=== PATIENT | female | born 1955 | race Caucasian/White ===

== ENCOUNTER 2023-08-23 17:00 | Emergency (ER) | payer MEDICARE, SELFPAY ==
--- NOTE | 2023-08-23 17:01 | ED.EYEPROB ---
HPI - Eye Problem General Chief complaint: Ear Stated complaint: Right Ear Irritation Time Seen by Provider: 08/23/23 17:01 Source: patient Mode of arrival: ambulatory Limitations: no limitations History of Present Illness HPI Narrative: Charlene is a 68-year-old female patient presenting to the clinic today with complaints of right ear irritation x2 days. She reports that she is having pain to the ear with drainage. No fever or chills. Related Data Home Medications Medication Instructions Recorded Confirmed alprazolam 1 mg tablet 1 mg DIRECTED 08/23/23 08/23/23 calcitriol 0.25 mcg capsule 0.25 mcg DIRECTED 08/23/23 08/23/23 duloxetine 60 mg capsule,delayed 60 mg PO DIRECTED 08/23/23 08/23/23 release ergocalciferol (vitamin D2) 1,250 1 unit DIRECTED 08/23/23 08/23/23 mcg (50,000 unit) capsule famotidine 20 mg tablet 20 mg DIRECTED 08/23/23 08/23/23 levothyroxine 88 mcg tablet 88 mcg DIRECTED 08/23/23 08/23/23 montelukast 10 mg tablet 10 mg DIRECTED 08/23/23 08/23/23 pregabalin 150 mg capsule 150 mg DIRECTED 08/23/23 08/23/23 topiramate 25 mg tablet 25 mg DIRECTED 08/23/23 08/23/23 trazodone 100 mg tablet 100 mg PO DIRECTED 08/23/23 08/23/23 Allergies Allergy/AdvReac Type Severity Reaction Status Date / Time Penicillins Allergy Intermediate RASH Verified 03/14/14 12:11 erythromycin base Allergy Unknown Verified 03/14/14 12:11 Sulfa (Sulfonamide Allergy Unknown FATIGUE Verified 03/14/14 12:11 Antibiotics) Review of Systems Review of Systems: Pertinent positives per HPI. Patient denies any fever, chills, rash, headache, visual changes, dizziness, cough, runny nose, sore throat, shortness of breath, chest pain, palpitations, nausea, vomiting, diarrhea, constipation, abdominal pain, or any urinary issues. PMFSH Comments At the time of my signature, I reviewed and agree with the nursing past medical, surgical, social, and family history. There is no relevant family history pertinent to the patient complaint. Exam Narrative: General: Well-developed, obese, in no apparent distress Head: Normocephalic, atraumatic Eyes: Pupils equally round and reactive to light bilaterally, EOM intact, sclera and conjunctive clear, no discharge, lids normal Ears: TMs intact and clear, left ear canals clear, right ear canal swollen with white otorrhea, tenderness to palpation of the tragus and pulling of the pinna, grossly hearing normal. Nose: Nares patent, no discharge, no inflammation, no sinus tenderness. Mouth: Oropharynx without lesions or masses, good dentition, MMM. Neck: Supple, trachea midline, no enlargement of anterior or posterior cervical nodes, no thyroid masses or goiter palpable. Cardio: Regular rate and rhythm, s1 and s2 normal, no murmur appreciated. Resp: Clear to auscultation bilaterally anteriorly and posteriorly, no rhonchi, rales, wheezing or rubs Course Course Emergency Course: Portions of this record may have been created with voice recognition software. Level of Care: Express Care Visit Vital Signs Vital signs: Vital signs reviewed MDM - Eye Problem MDM Narrative Medical decision making narrative: At the time of the patient is resting comfortably on the exam table. I suspect patient has right-sided otitis externa. Prescription for ofloxacin ear drops was prescribed. Supportive measures were discussed with the patient she voiced understanding of the discharge instructions and agrees to treatment plan. Differential Diagnosis Differential diagnosis: Likely other (Otitis media, otitis externa, eustachian tube dysfunction, cerumen impaction, URI) Discharge Plan Discharge Clinical Impression: Otitis externa Qualifiers: Otitis externa type: diffuse Chronicity: acute Laterality: right Qualified Code(s): H60.311 - Diffuse otitis externa, right ear Patient Disposition: Home, Self-Care Condition: Stable Instructions: Antibiotic Form, Swimmer's Ear
[2023-08-23 17:11] VITALS: BP 129/69; PULSE 81; RESP 16; TEMP 36.7; O2SAT 98
== END 2023-08-23 17:24 | disposition home or self-care (01) ==
PROVIDERS: Emergency Provider Nurse Practitioner Family; PCP Student in an Organized Health Care Education/Training Program
DX: H60.311 Diffuse otitis externa, right ear (principal); Z79.899 Other long term (current) drug therapy; Z79.891 Long term (current) use of opiate analgesic
CPT/HCPCS: 99213; G0463

== ENCOUNTER 2024-06-17 16:47 | Emergency (ER) | payer MEDICARE, SELFPAY ==
--- NOTE | ~2024-06-17 | XR_ITS ---
EXAM: XR foot RT min 3V DATE: 06/17/2024 17:24 HISTORY: pain rt foot , 2nd/3rd/4th toes fell getting out of shower . COMPARISON: 01/26/2014. FINDINGS: Normal mineralization. Tiny ossific fragments lateral to the third PIP joint joint. No lyt ic or blastic lesion. Mild scattered degenerative changes. Moderate Achilles and plantar enthesopathy . No erosion or periosteal change. Soft tissues within normal limits. IMPRESSION: Small avulsion fracture fragments (such as capsular avulsion) versus degenerative changes lateral to the third PIP joint. Correlate for point tenderness. Reviewed, dictated and finalized at location K. IMPRESSION: Small avulsion fracture fragments (such as capsular avulsion) versu s degenerative changes lateral to the third PIP joint. Correlate for point tend erness.
--- NOTE | ~2024-06-17 | XR_ITS ---
EXAM: XR wrist LT min 3V DATE: 06/17/2024 17:41 HISTORY: pain left lateral wrist into fell getting out of shower . COMPARISON: None available. FINDINGS: Decreased mineralization. Comminuted, intra-articular fracture of the distal left radius w ith mild impaction and 2 mm medial displacement. No lytic or blastic lesion. Joint spaces are maintai pricila. No erosion or periosteal change. Soft tissues within normal limits. IMPRESSION: Minimally impacted and minimally displaced comminuted, intra-articular fracture of the di stal left radius. No ulnar styloid fracture identified. Reviewed, dictated and finalized at location K. IMPRESSION: Minimally impacted and minimally displaced comminuted, intra-articu lar fracture of the distal left radius. No ulnar styloid fracture identified.
--- NOTE | ~2024-06-17 | XR_ITS ---
EXAM: XR forearm LT 2V DATE: 06/17/2024 17:23 HISTORY: pain lateral left forearm fell getting out of shower . COMPARISON: None available. FINDINGS: Mildly decreased mineralization. Nondisplaced comminuted intra-articular fracture of the d istal left radius. Possible ulnar styloid fracture. No lytic or blastic lesion. Mild scattered degene rative changes. No erosion or periosteal change. Soft tissues within normal limits. IMPRESSION: Nondisplaced comminuted intra-articular fracture of the distal left radius. Possible ulna r styloid fracture. Reviewed, dictated and finalized at location K. IMPRESSION: Nondisplaced comminuted intra-articular fracture of the distal left radius. Possible ulnar styloid fracture.
[2024-06-17 16:55] VITALS: BP 150/79; PULSE 74; RESP 16; TEMP 36.4; O2SAT 100
[2024-06-17 17:31] VITALS: BP 103/58; PULSE 90; RESP 18; TEMP 36.8; O2SAT 97
--- NOTE | 2024-06-17 17:32 | ED.UPPEXIN ---
HPI - Extremity Injury (Upper) General Chief Complaint: Extremity Injury, Upper Stated Complaint: Left Wrist/Arm Pain Time Seen by Provider: 06/17/24 17:32 History of Present Illness HPI narrative: Patient presents with complaints of left wrist pain and right foot pain. She reports that she slipped in the shower and fell just prior to arrival. She denies any head injuries. She reports that left wrist is the worst of her pain. She does retain full range of motion to the fingers, decreased mange range of motion to the wrist. She rates pain 6/10, has not had anything for pain prior to arrival. Related Data Home Medications Medication Instructions Recorded Confirmed alprazolam 1 mg tablet 1 mg DIRECTED 08/23/23 06/17/24 calcitriol 0.25 mcg capsule 0.25 mcg DIRECTED 08/23/23 06/17/24 duloxetine 60 mg capsule,delayed 60 mg PO DIRECTED 08/23/23 06/17/24 release ergocalciferol (vitamin D2) 1,250 1 unit DIRECTED 08/23/23 06/17/24 mcg (50,000 unit) capsule famotidine 20 mg tablet 20 mg DIRECTED 08/23/23 06/17/24 levothyroxine 88 mcg tablet 88 mcg DIRECTED 08/23/23 06/17/24 montelukast 10 mg tablet 10 mg DIRECTED 08/23/23 06/17/24 pregabalin 150 mg capsule 150 mg PO DIRECTED 08/23/23 06/17/24 topiramate 25 mg tablet 25 mg PO DIRECTED 08/23/23 06/17/24 trazodone 100 mg tablet 100 mg PO DIRECTED 08/23/23 06/17/24 Allergies Allergy/AdvReac Type Severity Reaction Status Date / Time Penicillins Allergy Intermediate RASH Verified 06/17/24 16:52 erythromycin base Allergy Unknown Rash Verified 06/17/24 16:52 Sulfa (Sulfonamide Allergy Unknown FATIGUE Verified 06/17/24 16:52 Antibiotics) Review of Systems Review of Systems: All systems reviewed & are unremarkable except as noted in HPI and below Constitutional: Constitutional: Reports no additional constitutional complaints ENT: Reports system reviewed and no additional complaints, except as documented Cardiovascular: Cardiovascular: Reports no additional cardiovascular complaints Respiratory: Respiratory: Reports no additional respiratory complaints Gastrointestinal: Gastrointestinal: Reports no additional gastrointestinal complaints Musculoskeletal: Musculoskeletal: Reports as per HPI, Reports deformity (left wrist), Reports arthralgias (left wrist), Reports limited range of motion (left wrist) and Reports other (right foot pain) Neurologic: Reports as per HPI Exam Const: General: cooperative, no acute distress, alert and awake Orientation/consciousness: oriented to person, oriented to place and oriented to time HENMT: Head: normal to inspection Resp: Effort & Inspection: normal respiratory effort and able to speak in complete sentences Auscultation: clear to auscultation bilaterally, no crackles, no rales, no rhonchi and no wheezes Cardio: Palpation: normal PMI Rate: regular rate Rhythm: regular rhythm Heart sounds: S1 normal heart sound present and S2 normal heart sound present Neuro: General: oriented to person, oriented to place and oriented to time Cranial nerves: Yes CN's II-XII intact bilaterally Extrem: Left upper extremity: normal capillary refill and wrist abnormal to inspection obvious deformity, tenderness of the distal radius and abnormal ROM pain with active ROM (flexion and extension) Right lower extremity: foot (Right 3rd toe with bruising, slight tenderness) Psych: Appearance: grossly normal Thought process: Normal thought process present Insight: Good insight present (Psych) Judgement: Good judgement present (Psych) Course Course Level of Care: Express Care Visit Vital Signs Vital signs: Vital Signs Temperature 97.6 F 06/17/24 16:55 Pulse Rate 74 06/17/24 16:55 Respiratory Rate 16 06/17/24 16:55 Blood Pressure 150/79 H 06/17/24 16:55 Pulse Oximetry 100 06/17/24 16:55 Oxygen Delivery Room Air 06/17/24 16:55 Temperature 98.3 F 06/17/24 17:31 Pulse Rate 90 06/17/24 17:31 Resp
[2024-06-17] MEDS: KETOROLAC (*BKC) 60 MG/2 ML VIAL IM (17:42)
== END 2024-06-17 19:16 | disposition home or self-care (01) ==
PROVIDERS: Emergency Provider Nurse Practitioner Family; PCP Student in an Organized Health Care Education/Training Program
DX: S92.501A Displaced unspecified fracture of right lesser toe(s), initial encounter for closed fracture (principal); S52.572A Other intraarticular fracture of lower end of left radius, initial encounter for closed fracture; W18.2XXA Fall in (into) shower or empty bathtub, initial encounter
CPT/HCPCS: 29125; 73090; 73110; 73630; 96372; 99214; A4565; G0463; J1885

== ENCOUNTER 2024-09-06 08:48 | Emergency (ER) | payer MEDICARE, SELFPAY ==
--- NOTE | 2024-09-06 08:56 | ED.EAR ---
HPI - Ear Problem General Chief complaint: Ear Stated complaint: Let Ear Irritation Time Seen by Provider: 09/06/24 09:01 Source: patient and RN notes reviewed Mode of arrival: ambulatory Limitations: no limitations History of Present Illness HPI Narrative: 69-year-old female presents concern for left ear pain. She reports she has had nasal congestion and discharge for about 2 weeks. Reports overnight she began having ear pain in the middle of the night with drainage. She denies fever. She takes antihistamines daily MD Complaint: ear pain Related Data Home Medications Medication Instructions Recorded Confirmed alprazolam 1 mg tablet 1 mg DIRECTED 08/23/23 09/06/24 calcitriol 0.25 mcg capsule 0.25 mcg DIRECTED 08/23/23 09/06/24 duloxetine 60 mg capsule,delayed 60 mg PO DIRECTED 08/23/23 09/06/24 release ergocalciferol (vitamin D2) 1,250 1 unit DIRECTED 08/23/23 09/06/24 mcg (50,000 unit) capsule famotidine 20 mg tablet 20 mg DIRECTED 08/23/23 09/06/24 levothyroxine 88 mcg tablet 88 mcg DIRECTED 08/23/23 09/06/24 montelukast 10 mg tablet 10 mg DIRECTED 08/23/23 09/06/24 pregabalin 150 mg capsule 150 mg PO DIRECTED 08/23/23 09/06/24 topiramate 25 mg tablet 25 mg PO DIRECTED 08/23/23 09/06/24 trazodone 100 mg tablet 100 mg PO DIRECTED 08/23/23 09/06/24 Allergies Allergy/AdvReac Type Severity Reaction Status Date / Time Penicillins Allergy Intermediate RASH Verified 09/06/24 08:51 erythromycin base Allergy Unknown Rash Verified 09/06/24 08:51 Sulfa (Sulfonamide Allergy Unknown FATIGUE Verified 09/06/24 08:51 Antibiotics) Review of Systems Review of Systems: CONSTITUTIONAL: Denies malaise, chills, sweats, or fever. EYES: Denies visual changes, redness, or discharge. ENT: Reports rhinorrhea, congestion. Denies sinus pain, and sore throat. Reports left ear pain CARDIOVASCULAR: Denies chest pain, palpitations, or edema. RESPIRATORY: Denies cough. Denies dyspnea. GASTROINTESTINAL: Denies abdominal pain, nausea, vomiting, diarrhea SKIN: Denies rash or itching. MUSCULOSKELETAL: Denies myalgia. NEUROLOGIC: Denies headache. All systems reviewed & are unremarkable except as noted in HPI and below PMFSH Comments At time of signature, agree with nursing past medical, surgical, social and family history. There is no relevant family history pertinent to the presenting complaint Exam Narrative: GENERAL: Well-appearing, well-nourished, and in no acute distress. HEAD: Normocephalic EYES: PERRLA, conjunctivae clear ENT: Nares clear, turbinates edematous, clear discharge. Mucous membranes moist. TM pearly naranjo with dull light reflex bilaterally; no tragal tenderness. Oropharynx not erythematous without lesions. Tonsils not enlarged and without exudate, no drooling, no hoarseness, no trismus, uvula midline. NECK: Supple. No lymphadenopathy CHEST: Clear to auscultation, breath sounds equal. No wheezing, rhonchi, rales, or stridor. No respiratory distress, speaks in full sentences. HEART: Regular rate and rhythm. No murmur heard. SKIN: Warm, dry, no rash. NEURO: Alert and oriented x3. PSYCH: Normal mood and affect Course Course Emergency Course: Patient is aware of diagnosis, understands and agrees to treatment plan. Anticipatory guidance given. Patient agrees to follow-up as directed and is aware of reasons to seek care at the emergency department. Portions of this record may have been created with voice recognition software Level of Care: Express Care Visit Vital Signs Vital signs: Reviewed. Medical Decision Making MDM Narrative Medical decision making narrative: I evaluated this in the express care. History is obtained from patient who is an independent historian and physical exam was performed.? Available medical records were reviewed. ? Exam findings and relevant testing show no acute concerns or changes; patient is non-toxic appearing and is in no distress. Differenti
[2024-09-06 08:57] VITALS: BP 132/72; PULSE 93; RESP 20; TEMP 36.1; O2SAT 100
== END 2024-09-06 09:25 | disposition home or self-care (01) ==
PROVIDERS: Emergency Provider Nurse Practitioner; PCP Student in an Organized Health Care Education/Training Program
DX: H66.92 Otitis media, unspecified, left ear (principal); Z79.899 Other long term (current) drug therapy
CPT/HCPCS: 99213; G0463

== ENCOUNTER 2024-11-07 07:59 | Outpatient (CLI) | payer MEDICARE, SELFPAY ==
--- NOTE | 2024-12-04 08:25 | P.SLEEP_ITS ---
Sleep Study Date of Study: 11/07/24 Ordering Provider: Mohan Walters, DO Interpreting Physician: Jojo Rascon DO Sleep Study Type: Polysomnogram Height: 1.6 m Weight: 99.79 kg Body Mass Index: 38.9 Neck Circumference (inches): 16 [place]: 9 Reason for Sleep Study daytime hypersomnia Sleep History The patient is a 69-year-old female had a sleep study ordered under primary care for evaluation of sleep apnea. The patient denies awakening from sleep short of breath. She denies awakening at night with heartburn, belching or cough. She frequently snores and is occasionally loud enough that others complain. She rarely has trouble sleeping when she has a cold. She denies waking up gasping for air throughout the night. She denies having breathing problems at night observed by herself or others. She denies sweating excessively at night. She denies having heart palpitations or irregular heartbeats during the night. She frequently falls asleep during the day but never while driving. She denies sleep paralysis, cataplexy and hypnagogic / hypnopompic hallucinations. She denies having trouble at school or work due to sleepiness. She denies feeling afraid of going to sleep. She denies having nightmares. She denies remembering her dreams. She denies having thoughts racing through mind. She occasionally feels sad or depressed. She rarely has anxiety. She denies having muscular ten alfreda and she denies noticing parts of her body jerk. She denies kicking during. She denies having crawling and aching feelings in her legs but occasionally awakens with leg pain during the night. She denies grinding her teeth during sleep denies awakening with morning pain. She is occasionally bothered pain during the day but never awakened by pain during the night. She denies waking up feeling stiff in the morning. She denies waking up with sore or achy muscles. She denies waking up with pain in the neck, spine other joints. She goes to bed at 10:00 p.m. on both weekdays and weekends. It takes her 10 minutes to fall asleep. She wakes up twice throughout the night to urinate and is able to fall back asleep within 10-15 minutes. She wakes up at 7:00 a.m. on weekdays and between 8-9 a.m. on the weekends. She gets 8.5 hours of sleep per night. She denies staying in bed after waking up in the morning. She currently lives with her and adult child. She will consume caffeinated beverages within 2 hours of bedtime. She denies engaging in physical exercise before bedtime. She will watch television before falling asleep. She will take naps in afternoon or the evening but they are not refreshing. She consumes 6-7 caffeinated beverages per day. She denies tobacco, alcohol and recreational drug use. Medications Home Medications ?Medication ?Instructions ?Recorded ?Confirmed ?Type alprazolam 1 mg tablet 1 mg DIRECTED 08/23/23 09/06/24 History calcitriol 0.25 mcg capsule 0.25 mcg DIRECTED 08/23/23 09/06/24 History duloxetine 60 mg capsule,delayed 60 mg PO DIRECTED 08/23/23 11/13/24 History release ergocalciferol (vitamin D2) 1,250 1 unit DIRECTED 08/23/23 09/06/24 History mcg (50,000 unit) capsule famotidine 20 mg tablet 20 mg DIRECTED 08/23/23 09/06/24 History levothyroxine 88 mcg tablet 88 mcg DIRECTED 08/23/23 09/06/24 History montelukast 10 mg tablet 10 mg DIRECTED 08/23/23 09/06/24 History pregabalin 150 mg capsule 150 mg PO DIRECTED 08/23/23 11/13/24 History topiramate 25 mg tablet 25 mg PO DIRECTED 08/23/23 11/13/24 History trazodone 100 mg tablet 100 mg PO DIRECTED 08/23/23 11/13/24 History hydrocodone 5 mg-acetaminophen 325 1 tablet PO Q6H PRN pain #14 tabs 06/17/24 09/06/24 Rx mg tablet cefdinir 300 mg capsule 300 mg PO Q12H 10 days #20 caps 09/06/24 11/13/24 Rx baclofen 10 mg tablet See Rx Instructions .Route 11/13/24 Rx .COMPLEX PRN muscle pain #7 tabs Sleep Procedure A full night polysomnogram using the [employer] multi-channel system recorded the standard physiologic parameters including EEG, EOG, submentalis EMG, anterior tibialis EMG, EKG, body position, nasal and oral airflow using nasal pressure sensor and thermistor.? Respiratory parameters of chest and abdominal movements were recorded with Respiratory Inductance Plethysmography belts. Oxygen saturation was recorded by pulse oximetry. Video monitoring was also performed. Sleep stages, periodic limb movements, and EEG arousals were scored in 30 second epochs according to the criteria of the AASM Scoring Manual. The Apnea-Hypopnea Index was calculated using [facility] guidelines for definition of hypopnea with 4% O2 desaturations while scoring respiratory events. Sleep Architecture The total recording time was 469.7 minutes.? The total sleep time was 375.5 minutes. Sleep latency was 33.0 minutes. REM sleep was not achieved during this study. Sleep efficiency was 79.9%. The patient had 53 awakenings for an awakening index of 8.5. Wake after sleep onset time was 61.0 minutes. The patient spent 77.0 minutes, 20.5% of total sleep time in Stage N1. The patient spent 260.5 minutes, 69.4% in Stage N2. The patient spent 38.0 minutes, 10.1% in Stage N3. The patient spent 0.0 minutes, 0.0% in Stage REM sleep. Respiratory Analysis The patient had 3 obstructive apneas for an overall Apnea Hypopnea Index of 0.5. The REM Apnea Hypopnea Index was -. The NREM Apnea Hypopnea Index was 0.5. The patient had a Central Apnea Hypopnea Index of 0. There was no evidence of Gunnar-Awad Respirations. Arousals There were 124 total arousals for an arousal index of 19.8. There were 100 spontaneous arousals for an index of 16.0. There were 5 arousals due to respiratory events for an index of 0.8. There were 0 arousals due to periodic limb movements for an index of 0.? There were 14 arousals due to isolated limb movements for an index of 2.2. Periodic Limb Movements The patient had 29 isolated limb movements with an index of 4.6. The patient had 6 periodic limb movements with an index of 1.0. Patient had a total of 35 limb movements with a total limb movement index of 5.6. Oximetry Data The patient had an average oxygen saturation of 94.2% in sleep with a minimum oxygen saturation of 90.0% and a maximum oxygen saturation of 98.0%. The patient had 3 oxygen desaturations that were 4% or greater resulting in an Oxygen Desaturation Index of 0.5.? The patient spent 0 minutes of total sleep time with an oxygen saturation below 88%. Snoring Profile Mild snoring was present throughout the study. Cardiac Profile The EKG showed normal sinus rhythm with occasional PVCs. The patient had an average pulse rate of 62.2 bpm with a minimum pulse of rate of 52.0 bpm and a maximum pulse rate of 98.0 bpm.? EEG Profile No signs of seizure activity seen. Alpha intrusion was present throughout the majority of the study. Assessment and Plan Assessment and Plan (1) Daytime hypersomnia: Code(s): G47.10 - Hypersomnia, unspecified Status: Acute Assessment and Plan: The patient had an overall AHI of 0.5 with desaturation down to 90%. This is not consistent with sleep-disordered breathing. The patient had alpha intrusion present throughout the majority of the study. Alpha intrusion can be seen in patients with uncontrolled mood disorders or chronic pain. It clinically presents as unrefreshing sleep despite sleeping an adequate number of hours in the absence of sleep-disordered breathing. Treatment of alpha intrusion is directed towards addressing the underlying cause. Data The data obtained during this sleep study is adequate for interpretation. Certification This sleep study has been reviewed by a board certified sleep medicine physician.
[2024-12-08 15:16] VITALS: BMI 38.9
== END 2024-11-08 05:43 | disposition home or self-care (01) ==
PROVIDERS: PCP Student in an Organized Health Care Education/Training Program; Visit Provider Student in an Organized Health Care Education/Training Program
DX: G47.10 Hypersomnia, unspecified (principal); G47.9 Sleep disorder, unspecified
CPT/HCPCS: 95810

== ENCOUNTER 2024-11-13 09:29 | Emergency (ER) | payer MEDICARE, SELFPAY ==
[2024-11-13 10:02] VITALS: BP 146/82; PULSE 87; RESP 16; TEMP 36.2; O2SAT 99
--- NOTE | 2024-11-13 10:48 | ED.GENADULT ---
HPI - General Adult General Chief complaint: Extremity Problem,Nontraumatic Stated complaint: right thigh sharp pain Time Seen by Provider: 11/13/24 10:48 Source: patient, RN notes reviewed and old records reviewed Mode of arrival: ambulatory Limitations: no limitations History of Present Illness HPI narrative: 69-year-old female presents to the [facility] with right thigh pain. Patient states that pain started at 1300 on Sunday afternoon. States that she was just cleaning house. Denies any injury. Denies any edema. Denies any heavy lifting pushing or pulling. States that she tried getting appointment with her primary, unable to get in today. States they had called in a prescription for naproxen, took 1 dose this morning and it did not help her discomfort. Patient has no midline tenderness. No loss retention of bowel or bladder. Reports pain to the right hip area. Patient walking with a slight limp due to discomfort Offered x-ray, patient declined. No rashes, ecchymosis noted. No swelling noted. Onset (ago): day(s) (4) Treatments prior to arrival: NSAID (One dose this morning) Related Data Home Medications ?Medication ?Instructions ?Recorded ?Confirmed ?Last Taken ?Type alprazolam 1 mg tablet 1 mg DIRECTED 08/23/23 09/06/24 Unknown History calcitriol 0.25 mcg capsule 0.25 mcg DIRECTED 08/23/23 09/06/24 Unknown History duloxetine 60 mg capsule,delayed 60 mg PO DIRECTED 08/23/23 11/13/24 Unknown History release ergocalciferol (vitamin D2) 1,250 1 unit DIRECTED 08/23/23 09/06/24 Unknown History mcg (50,000 unit) capsule famotidine 20 mg tablet 20 mg DIRECTED 08/23/23 09/06/24 Unknown History levothyroxine 88 mcg tablet 88 mcg DIRECTED 08/23/23 09/06/24 Unknown History montelukast 10 mg tablet 10 mg DIRECTED 08/23/23 09/06/24 Unknown History pregabalin 150 mg capsule 150 mg PO DIRECTED 08/23/23 11/13/24 Unknown History topiramate 25 mg tablet 25 mg PO DIRECTED 08/23/23 11/13/24 Unknown History trazodone 100 mg tablet 100 mg PO DIRECTED 08/23/23 11/13/24 Unknown History Allergies Allergy/AdvReac Type Severity Reaction Status Date / Time carbamazepine Allergy Intermediate Hypotension Verified 11/13/24 10:26 Penicillins Allergy Intermediate RASH Verified 11/13/24 10:26 erythromycin base Allergy Unknown Rash Verified 11/13/24 10:26 Sulfa (Sulfonamide Allergy Unknown FATIGUE Verified 11/13/24 10:26 Antibiotics) levofloxacin (From Levaquin) Allergy Unknown Verified 11/13/24 10:26 methocarbamol Allergy hive Verified 11/13/24 10:26 Review of Systems Review of Systems: All systems reviewed & are unremarkable except as noted in HPI and below Constitutional: Constitutional: Reports no additional constitutional complaints ENT: Reports system reviewed and no additional complaints, except as documented Cardiovascular: Cardiovascular: Reports no additional cardiovascular complaints, Denies chest pain and Denies dyspnea Respiratory: Respiratory: Reports no additional respiratory complaints, Denies chest congestion, Denies cough and Denies dyspnea Musculoskeletal: Musculoskeletal: Reports as per HPI Integumentary/Breasts: Skin/Breast: Reports system reviewed and no additional complaints, except as docu PMFSH Comments At the time of my signature, I reviewed and agree with the nursing past medical, surgical, social, and family history. There is no relevant family history pertinent to the patient complaint. Exam Const: General: cooperative, healthy appearing, comfortable, no acute distress, well developed, alert and well nourished Nutritional Appearance: well nourished Orientation/consciousness: patient oriented x3 Limitations: no limitations HENMT: Head: normal to inspection Face and sinus: normal facial exam and face symmetric Eyes: General: appearance normal, both eyes and all related structures Neck: Neck: normal visual inspection, full ROM, no lymphadenopathy and no meningeal signs Chest: Chest palpation & inspection: normal inspection of the chest Resp: Effort & Inspection: normal respiratory effort and able to speak in complete sentences Cardio: Rate: regular rate GI: GI Palp: No abdominal tenderness Back/Spine/Pelvis: Back: no CVA tenderness, No erythema, No sacral edema, No ecchymosis and No back tenderness Thoracic/Lumbar Spine: No paraspinal muscle tenderness, No thoracic spinal tenderness and No lumbar spinal tenderness Pelvis: no pain with anterior-posterior compression and no pain with lateral compression Sacrum: no ecchymosis Skin: General skin exam: normal color and no rashes or lesions noted Neuro: General: patient oriented x3, moves all extremities and no meningeal signs Cognition (Neuro): normal cognition Speech: normal speech Extrem: General: normal to inspection, full ROM, capillary refill normal and normal gait Right lower extremity: hip/thigh Details: tenderness (Upper lateral aspect) and normal ROM; no swelling, no abrasions, no lacerations, no ecchymosis and no penetrating wound Psych: Appearance: grossly normal and well kempt Mental Status: mental status grossly normal Speech and movement: Normal speech and movement present and Clear speech present Affect: normal affect Attitude: cooperative Course Course Level of Care: Express Care Visit Vital Signs Vital signs: Vital Signs Temperature 97.1 F L 11/13/24 10:02 Pulse Rate 87 11/13/24 10:02 Respiratory Rate 16 11/13/24 10:02 Blood Pressure 146/82 H 11/13/24 10:02 Pulse Oximetry 99 11/13/24 10:02 Oxygen Delivery Room Air 11/13/24 10:02 Temperature 97.1 F L 11/13/24 10:02 Pulse Rate 87 11/13/24 10:02 Respiratory Rate 16 11/13/24 10:02 Blood Pressure 146/82 H 11/13/24 10:02 Pulse Oximetry 99 11/13/24 10:02 Oxygen Delivery Room Air 11/13/24 10:02 Reviewed Medical Decision Making MDM Narrative Medical decision making narrative: Patient sitting comfortably in exam room. Nontoxic, vitals stable. Patient in no acute distress Patient presents for right lateral thigh pain. Requesting additional pain medication and testing. Discussed we can offer an x-ray which which show arthritis or fracture. Patient states that she knows she does not have a fracture wants to know why she is having pain. Discussed the importance of following up with primary care provider or the pain is too much we can refer her to the emergency room which she declined Patient stated she has concern for blood clot, cannot rule that out however has no lower leg it edema Discussed arthritic changes, strain muscle and treatment plan. Discharge instructions reviewed with patient, as well as provided in writing per nursing staff. The instructions also include specific and strict return/GO TO THE ER as well as f/u information. All questions have been answered, and the patient deny any further questions with discharge and discharge plan. Some parts of this dictation were generated by voice recognition software and may contain typographical and/or grammatical inaccuracies. Differential Diagnosis Differential Diagnosis: Pulled muscle, contusion, arthritis Medical Records Medical records reviewed: Yes I reviewed the external patient's medical records. Vital Signs Vital Signs: Vital Signs Temperature 97.1 F L 11/13/24 10:02 Pulse Rate 87 11/13/24 10:02 Respiratory Rate 16 11/13/24 10:02 Blood Pressure 146/82 H 11/13/24 10:02 Pulse Oximetry 99 11/13/24 10:02 Oxygen Delivery Room Air 11/13/24 10:02 Temperature 97.1 F L 11/13/24 10:02 Pulse Rate 87 11/13/24 10:02 Respiratory Rate 16 11/13/24 10:02 Blood Pressure 146/82 H 11/13/24 10:02 Pulse Oximetry 99 11/13/24 10:02 Oxygen Delivery Room Air 11/13/24 10:02 Reviewed Lab Data Lab results reviewed: Yes I reviewed the patient's lab results. Labs: Reviewed Critical Care Time Critical Care Time Critical Care Time: No Discharge Plan Discharge Clinical Impression: Acute thigh pain Qualifiers: Laterality: right Qualified Code(s): M79.651 - Pain in right thigh Patient Disposition: Home, Self-Care Condition: Stable Instructions: Antibiotic Form, Leg Pain (ED) Additional Instructions: Take the naproxen you were prescribed Follow-up with primary care provider For new or worsening symptoms go directly to the emergency room Patient Language: Upper Sorbian Prescriptions: New baclofen 10 mg tablet See Rx Instructions .Route .COMPLEX PRN (Reason: muscle pain) Qty: 7 0RF Rx Instructions: 0.5-1 tab bid prn pain No Action alprazolam 1 mg tablet 1 mg DIRECTED topiramate 25 mg tablet 25 mg PO DIRECTED levothyroxine 88 mcg tablet 88 mcg DIRECTED famotidine 20 mg Tablet 20 mg DIRECTED trazodone 100 mg tablet 100 mg PO DIRECTED montelukast 10 mg tablet 10 mg DIRECTED ergocalciferol (vitamin D2) 1,250 mcg (50,000 unit) capsule 1 unit DIRECTED calcitriol 0.25 mcg capsule 0.25 mcg DIRECTED duloxetine 60 mg capsule,delayed release(DR/EC) 60 mg PO DIRECTED pregabalin 150 mg capsule 150 mg PO DIRECTED hydrocodone-acetaminophen 5-325 mg tablet 1 tablet PO Q6H PRN (Reason: pain) Qty: 14 0RF cefdinir 300 mg capsule 300 mg PO Q12H 10 Days Qty: 20 0RF Follow-up/Referrals: Romeo,DO Mohan [Primary Care Provider] - 3 Days (express care follow up right thigh pain ) Stand Alone Forms: Work/School Release IP Time of Disposition: 11:01
--- NOTE | 2024-11-13 11:13 | PC.NURSE ---
RN to room to discharge Pt. Stressed importance of follow up with PCP for further testing if pain persists. Pt now requesting Px for muscle relaxer, which she had previously refused when HAND CUTTER offered. HAND CUTTER aware, Px sent to Pt's preferred pharmacy.
== END 2024-11-13 11:15 | disposition home or self-care (01) ==
PROVIDERS: Emergency Provider Nurse Practitioner; PCP Student in an Organized Health Care Education/Training Program
DX: M79.651 Pain in right thigh (principal)
CPT/HCPCS: 99211; G0463

== ENCOUNTER 2025-01-20 09:44 | Outpatient (CLI) | payer MEDICARE, SELFPAY ==
--- NOTE | 2025-01-20 10:44 | ECG_ITS ---
Test Date: 2025-01-20 11:10:07 Measurements Intervals [place] Rate: 81 P: 59 [place]: 159 QRS: -10 QRSD: 89 T: 6 QT: 366 QTc: 426 Interpretive Statements SINUS RHYTHM LOW QRS VOLTAGE IN PRECORDIAL LEADS BORDERLINE R WAVE PROGRESSION, ANTERIOR LEADS BORDERLINE T WAVE ABNORMALITY- INFERIOR LEADS BASELINE ARTIFACT- I, III, AVR, AVL, AVF BORDERLINE ECG No previous ECG available for comparison Electronically Signed On 01-20-2025 11:21:36 FIXING MACHINE OPERATOR by Andrae Arita D.O.
--- OUTSIDE RECORDS SUMMARY | 2025-01-20 11:01 | XMS_ITS | Encounter Summary ---
Author Organization [facility] Address [facility] [place] [address] Care Team Providers Care Procedures Nurse Name Role Phone Romeo Mohan Becerra DO Primary Care Provider + Valdo García MD Unavailable [phone] Encounter Details Date Type Department Care Team (Late st Contact Info) Description 10/29/2024 [employer] Message Enc [facility] Family & Internal Medicine [address] [phone] [place], [facility] Provider lab results Social History Tobacco Use Types Packs/Day Years Used Date Smoking Tobacco: Never Passive Smoke Exposure: Never Smokeless Tobacco: Never Comments:Not smoker Alcohol Use Standard Drinks/Week Comments Yes 0 (1 standard drink = 0.6 oz pure alcohol) occasional, less than 1 drink a month PHQ-2 Answer Date Recorded Patient Health Questionnaire-2 Score 0 12/12/2023 Education Answer Date Recorded What is the highest level of school you have completed or the highest degree you have received? 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 Answer Date of Assessment Author Status No 07/28/2020 4:22 PM CDT Activ e * Do you have serious difficulty walking or climbing stairs? Answer Date of Assessment Author Status No 07/28/2020 4:22 PM CDT Kassy Gonzalez RN Active * Do you have difficulty dressing or bathing? Answer Date of Assessment Author Status No 07/28/2020 4:22 PM CDT Kassy Gonzalez RN Active * Because of a physical, mental, or emotional condition, do you have difficulty doing errands alone such as visiting a doctor's office or shopping? Answer Date of Assessment Author Status No 07/28/2020 4:22 PM CDT Kassy Gonzalez RN Active documented as of this encounter Mental Status * Because of a physical, mental, or emotional condition, do you have serious difficulty concentrating, remembering, or making decisions? Answer Entry Date Author Status No 07/28/2020 4:22 PM CDT Kassy Gonzalez RN Active documented in this encounter Plan of Treatment Upcoming Encounters Date Type Department Care Team (Late st Contact Info) Description 01/22/2025 11:40 AM POLICEMAN Office Visit [facility] Family & Internal Medicine - [address] [phone] Mohan Walters DO [address] [place] [phone] documented as of this encounter Visit Diagnoses Not on filedocumented in this encounter Additional Health Concerns Assessment Noted Time PHQ-9 Depression Total Score: 6 03/16/20 22 1:58 PM CDT documented as of this encounter Care Teams Procedures Nurse Relationship Specialty Start Date End Date Mohan Walters DO [address] [place] [id number] PCP - General FAMILY PRACTICE 05/15/19 Valdo García MD [address] [phone] Consulting Physician CARDIOVASCULAR DISEASE 05/28/19 documented as of this encounter
--- OUTSIDE RECORDS SUMMARY | 2025-01-20 11:01 | XMS_ITS | CONTINUITY OF CARE DOCUMENT ---
Author Name desmond logan Address Unknown Organization [facility] Address [address] [place] [address] [address] [place] [address] Phone [phone] Care Team Providers Care Elevated Work Platform Operator Name Role Phone Remy GAN, Toniya Unavailable PATY GAN, RUNDA Unavailable PATY GAN, RUNDA Unavailable [phone] VITAL SIGNS Date Observation Value Provider blood pressure, systolic 140 mm[Hg] Car ashley Yoder SOCIAL HISTORY Date Observation Value Provider smoking status never Leydi Cohen nn FUNCTIONAL STATUS Date Observation Value Provider periodic limb movement index absent (0) Leydi Yoder INSURANCE PROVIDERS Payer name Policy type / Coverage type [employer] party [employer] [facility] Medicaid 1 [id number]
--- OUTSIDE RECORDS SUMMARY | 2025-01-20 11:01 | XMS_ITS | Referral Summary ---
Author Organization [facility] Address [address] [place] [address] Care Team Providers Care Safety Officer Name Role Phone Unavailable Primary Care Provider Unavailabl e Source Comments [facility],non-owned Affiliates and Associated Physician Practices is amultiple site organization consisting of ambulatory clinics and hospital sitesin [place], [place], [place] and [place]. This disclosure is being madepursuant to the Care Everywhere program and may not contain all information available regarding this patient. Last updated 18.[facility] Encounters Date Type Department Care Team Description 10/30/2024 Lab Requisition [facility] - DermPath Lab [address] [place] [address] Glenroy Broderick MD Squamous cell carcinoma of skin of right upper limb, including shoulder 10/27/2024 Lab Requisition [facility] - DermPath Lab [address] [place] [address] Glenroy Broderick MD Neoplasm of uncertain behavior of skin from Last 3 Months Social History Tobacco Use Types Packs/Day Years Used Date Smoking Tobacco: Never Assessed Sex and Gender Information Value Date Recorded Sex Assigned at Not on file Gender Identity Not on file Sexual Orientation Not on file Plan of Treatment Not on file Procedures Procedure Name Priority Date/Time Associated Diagnosis Comments DERMATOPATHOLOGY Routine 10/30/2024 12:0 0 AM INFORMATION SERVICES MANAGER Squamous cell carcinoma of skin of right upper limb, including shoulder DERMATOPATHOLOGY Routine 10/27/2024 3:33 AM INFORMATION SERVICES MANAGER Neoplasm of uncertain behavior of skin from Last 3 Months Results * DERMATOPATHOLOGY (10/30/2024 12:00 AM INFORMATION SERVICES MANAGER) Only the most recent of2 resultswithin the time period is included. Case Report Dermatopathology Report Case: [id number] Authorizing Provider: Glenroy Broderick MD Collected: 10/30/2024 12:00 AM Ordering Location: [facility] - Received: 11/03/2024 02:05 PM DermPath Lab Pathologist: Jacquelyn Tapia MD Specimen: Skin, right forearm 2:22 PM [facility] DERMATOPATHOLOGY LABORATORY Final Diagnosis Specimen A. SKIN, right forearm: DERMAL SCAR RESIDUAL SQUAMOUS CELL CARCINOMA NOT IDENTIFIED (L90.5) 2:22 PM INFORMATION SERVICES MANAGER DERMATOPATHOLOGY LABORATORY Clinical History SCC Check margins 2:22 PM [facility] DERMATOPATHOLOGY LABORATORY Gross Description Specimen A: Received is one formalin filled container labeled with the patient's name and designated right forearm. The specimen consists of a non-oriented ellipse of skin measuring 61o48a1 mm. The epidermal surface is unremarkable. The margin is inked green. The 12 o'clock and 6 o'clock tips are submitted in cassette 1. The remainder of the ellipse is serially sectioned and submitted in cassette 2. Jar 0. 2:22 PM [facility] DERMATOPATHOLOGY LABORATORY Microscopic Description Specimen A. SKIN, right forearm: There are fibroblasts and collagen bundles oriented parallel to the skin surface. There are elongated blood vessels, some of which are oriented perpendicular to the skin surface. No residual squamous cell carcinoma is identified. 2:22 PM [facility] DERMATOPATHOLOGY LABORATORY Disclaimer An external and internal positive and negative controls are appropriate for the histochemical, immunohistochemical and immunofluorescence stain(s) in this case (if any), except where stated explicitly. The performance characteristics of the stain(s) cited in this report were developed and its performance characteristic determined by the Dermatopathology Laboratory at [facility], directed by Dr. Rene Merlos. These tests need not be, and therefore are not, approved by the [place] Food and Drug Administration. The tests are used for clinical purposes. Billing Codes Specimen Charges Stain Charges 06375 1 2:22 PM [facility] DERMATOPATHOLOGY LABORATORY Embedded Images 2:22 PM [facility] DERMATOPATHOLOGY LABORATORY Pathology/Cytolog y TISSUE SPECIMEN FROM SKIN / Unknown 10/30/2024 11/03/2024 2:05 PM INFORMATION SERVICES MANAGER Glenroy Broderick MD LAB - PATHOLOGY/CYTO LOGY ORDERABLES DERMATOPATHOLOGY LABORATORY [facility] - Department of Dermatology [address] [place] [address], [facility] [phone] from Last 3 Months
--- OUTSIDE RECORDS SUMMARY | 2025-01-20 11:01 | XMS_ITS | Encounter Summary ---
Author Organization [facility] Address [address] [place] [address] Care Team Providers Care Wind Turbine Mechanic Name Role Phone Unavailable Primary Care Provider Unavailabl e Encounter Details Date Type Department Care Team (Late st Contact Info) Description 10/27/2024 Lab Requisition [facility] - DermPath Lab [address] [place] [phone] Glenroy Broderick MD [facility] DERMATOLOGY [address] [place] [phone] Neoplasm of uncertain behavior of skin Social History Tobacco Use Types Packs/Day Years Used Date Smoking Tobacco: Never Assessed Sex and Gender Information Value Date Recorded Sex Assigned at Not on file Gender Identity Not on file Sexual Orientation Not on file documented as of this encounter Plan of Treatment Not on file documented as of this encounter Procedures Procedure Name Priority Date/Time Associated Diagnosis Comments DERMATOPATHOLOGY Routine 10/27/2024 3:33 AM BRICK TOSSER Neoplasm of uncertain behavior of skin documented in this encounter Results * DERMATOPATHOLOGY (10/27/2024 3:33 AM BRICK TOSSER) Case Report Dermatopathology Report Case: [id number] Authorizing Provider: Glenroy Broderick MD Collected: 10/27/2024 03:33 AM Ordering Location: [facility] - Received: 10/28/2024 11:29 AM DermPath Lab Pathologist: Rupal Brown MD Specimen: Skin, right upper arm 3:26 PM BRICK TOSSER DERMATOPATHOLOGY LABORATORY Final Diagnosis Specimen A. SKIN, right upper arm: INVERTED FOLLICULAR KERATOSIS (L82.1) (see microscopic description) 3:26 PM BRICK TOSSER DERMATOPATHOLOGY LABORATORY Clinical History SCC 4 3:26 PM [facility] DERMATOPATHOLOGY LABORATORY Gross Description Specimen A: Received is one formalin filled container labeled with the patient's name and designated right upper arm. The specimen consists of a shave biopsy measuring 4x3x1 mm. Jar 0. 3:26 PM [facility] DERMATOPATHOLOGY LABORATORY Microscopic Description Specimen A. SKIN, right upper arm: Sections show an endophytic lesion with acanthosis consisting of fairly uniform squamous cells with eosinophilic cytoplasm. Squamous eddies are seen toward the base of the lesion. The tumor is negative for CD34. Mib-1 stain highlights proliferating keratinocytes confined to the basilar epidermis. Additional deeper sections were obtained and reviewed. 3:26 PM [facility] DERMATOPATHOLOGY LABORATORY Disclaimer An external and internal positive and negative controls are appropriate for the histochemical, immunohistochemical and immunofluorescence stain(s) in this case (if any), except where stated explicitly. The performance characteristics of the stain(s) cited in this report were developed and its performance characteristic determined by the Dermatopathology Laboratory at [facility], directed by Dr. Rene Merlos. These tests need not be, and therefore are not, approved by the [place] Food and Drug Administration. The tests are used for clinical purposes. Billing Codes Specimen Charges Stain Charges 64701 1 12941 23403 1 1 4 3:26 PM [facility] DERMATOPATHOLOGY LABORATORY Embedded Images 3:26 PM [facility] DERMATOPATHOLOGY LABORATORY Pathology/Cytolo gy TISSUE SPECIMEN FROM SKIN / Unknown 10/27/2024 3:33 AM BRICK TOSSER 10/28/2024 11:29 AM [facility] Glenroy Broderick MD LAB - PATHOLOGY/CYTO LOGY ORDERABLES DERMATOPATHOLOGY LABORATORY [facility] - Department of Dermatology [address] [phone] documented in this encounter Visit Diagnoses Diagnosis Neoplasm of uncertain behavior of skin documented in this encounter
--- OUTSIDE RECORDS SUMMARY | 2025-01-20 11:01 | XMS_ITS | Encounter Summary ---
Author Organization [facility] Address [address] [place] [address] Care Team Providers Care Animal Husbandry Worker Name Role Phone Unavailable Primary Care Provider Unavailabl e Encounter Details Date Type Department Care Team (Late st Contact Info) Description 10/30/2024 Lab Requisition [facility] - DermPath Lab [address] [place] [phone] Glenroy Broderick MD [facility] DERMATOLOGY [address] [place] [phone] Squamous cell carcinoma of skin of right upper limb, including shoulder Social History Tobacco Use Types Packs/Day Years [...] Comments DERMATOPATHOLOGY Routine 10/30/2024 12:0 0 AM SAMPLE COLOR MAKER Squamous cell carcinoma of skin of right upper limb, including shoulder documented in this encounter Results * DERMATOPATHOLOGY (10/30/2024 12:00 AM SAMPLE COLOR MAKER) Case Report Dermatopathology Report Case: [id number] Authorizing Provider: Glenroy Broderick MD Collected: 10/30/2024 12:00 AM Ordering Location: [facility] - Received: 11/03/2024 02:05 PM DermPath Lab Pathologist: Jacquelyn Tapia MD Specimen: Skin, right forearm 4 2:22 PM SAMPLE COLOR MAKER DERMATOPATHOLOGY LABORATORY Final Diagnosis Specimen A. SKIN, right forearm: DERMAL SCAR RESIDUAL SQUAMOUS CELL CARCINOMA NOT IDENTIFIED (L90.5) 4 2:22 PM SAMPLE COLOR MAKER DERMATOPATHOLOGY LABORATORY Clinical History SCC Check margins 2:22 PM [facility] DERMATOPATHOLOGY LABORATORY Gross Description Specimen A: Received is one formalin filled container labeled with the patient's name and designated right forearm. The specimen consists of a non-oriented ellipse of skin measuring 70m33y0 mm. The epidermal surface is unremarkable. The margin is inked green. The 12 o'clock and 6 o'clock tips are submitted in cassette 1. The remainder of the ellipse is serially sectioned and submitted in cassette 2. Jar 0. 2:22 PM [facility] DERMATOPATHOLOGY LABORATORY Microscopic Description Specimen A. SKIN, right forearm: There are fibroblasts and collagen bundles oriented parallel to the skin surface. There are elongated blood vessels, some of which are oriented perpendicular to the skin surface. No residual squamous cell carcinoma is identified. 2:22 PM [facility] DERMATOPATHOLOGY LABORATORY Disclaimer An external and internal positive and negative controls are appropriate for the histochemical, immunohistochemical and immunofluorescence stain(s) in this case (if any), except where stated explicitly. The performance characteristics of the stain(s) cited in this report were developed and its performance characteristic determined by the Dermatopathology Laboratory at [facility], directed by Dr. Rene Merlos. These tests need not be, and therefore are not, approved by the [place] Food and Drug Administration. The tests are used for clinical purposes. Billing Codes Specimen Charges Stain Charges 76369 1 2:22 PM [facility] DERMATOPATHOLOGY LABORATORY Embedded Images 2:22 PM [facility] DERMATOPATHOLOGY LABORATORY Pathology/Cytolog y TISSUE SPECIMEN FROM SKIN / Unknown 10/30/2024 11/03/2024 2:05 PM [facility] Glenroy Broderick MD LAB - PATHOLOGY/CYTO LOGY ORDERABLES DERMATOPATHOLOGY LABORATORY [facility] - Department of Dermatology [address] [phone] documented in this encounter Visit Diagnoses Diagnosis Squamous cell carcinoma of skin of right upper limb, including shoulder Squamous cell carcinoma of skin of upper limb, including shoulder documented in this encounter
--- OUTSIDE RECORDS SUMMARY | 2025-01-20 11:01 | XMS_ITS | Encounter Summary ---
Author Organization [facility] Address [address] [place] [address] Care Team Providers Care Impregnator And Drier Helper Name Role Phone Unavailable Primary Care Provider Unavailabl e Encounter Details Date Type Department Care Team (Late st Contact Info) Description 07/21/2024 Lab Requisition [facility] - DermPath Lab [address] [place] [phone] Glenroy Broderick MD [facility] DERMATOLOGY [address] [place] [phone] Neoplasm of uncertain behavior of skin [...] Priority Date/Time Associated Diagnosis Comments DERMATOPATHOLOGY Routine 07/21/2024 12:0 0 AM CDT Neoplasm of uncertain behavior of skin documented in this encounter Results * DERMATOPATHOLOGY (07/21/2024 12:00 AM CDT) Case Report Dermatopathology Report Case: [id number] Authorizing Provider: Glenroy Broderick MD Collected: 07/21/2024 12:00 AM Ordering Location: [facility] - Received: 07/22/2024 12:20 PM DermPath Lab Pathologist: Rupal Brown MD Specimen: Skin, right forearm 3:36 PM CDT DERMATOPATHOLOGY LABORATORY Final Diagnosis Specimen A. SKIN, right forearm: SQUAMOUS CELL CARCINOMA, WELL DIFFERENTIATED (C44.622) 3:36 PM CDT DERMATOPATHOLOGY LABORATORY Clinical History Keratoacanthoma 3:36 PM CDT DERMATOPATHOLOGY LABORATORY Gross Description Specimen A: Received is one formalin filled container labeled with the patient's name and designated right forearm. The specimen consists of a shave biopsy measuring 8x8x2 mm. Jar 0. 3:36 PM CDT DERMATOPATHOLOGY LABORATORY Microscopic Description Specimen A. SKIN, right forearm: Arising in the epidermis and extending into the dermis there are irregularly shaped aggregates of keratinocytes showing evidence of premature cornification. 3:36 PM CDT DERMATOPATHOLOGY LABORATORY Disclaimer An external and internal positive and negative controls are appropriate for the histochemical, immunohistochemical and immunofluorescence stain(s) in this case (if any), except where stated explicitly. The performance characteristics of the stain(s) cited in this report were developed and its performance characteristic determined by the Dermatopathology Laboratory at [facility], directed by Dr. Rene Merlos. These tests need not be, and therefore are not, approved by the [place] Food and Drug Administration. The tests are used for clinical purposes. Billing Codes Specimen Charges Stain Charges 65192 1 4 3:36 PM CDT DERMATOPATHOLOGY LABORATORY Embedded Images 3:36 PM CDT DERMATOPATHOLOGY LABORATORY Pathology/Cytolog y TISSUE SPECIMEN FROM SKIN / Unknown 07/21/2024 07/22/2024 12:20 PM CDT Glenroy Broderick MD LAB - PATHOLOGY/CYTO LOGY ORDERABLES DERMATOPATHOLOGY LABORATORY [facility] - Department of Dermatology [address] [phone] documented in this encounter Visit Diagnoses Diagnosis Neoplasm of uncertain behavior of skin documented in this encounter
--- OUTSIDE RECORDS SUMMARY | 2025-01-20 11:01 | XMS_ITS | Clinical Summary ---
Author Organization [facility] Address [address] [facility] [address] Care Team Providers Care Territory Sales Representative Name Role Phone Unavailable Primary Care Provider Unavailabl e Source Comments [facility],non-owned Affiliates and Associated Physician Practices is amultiple site organization consisting of ambulatory clinics and hospital sitesin [place], [place], [place] and [place]. This disclosure is being madepursuant to the Care Everywhere program and may not contain all information available regarding this patient. Last updated 18.[facility] Encounters Date Type Department Care Team Description 10/30/2024 Lab Requisition [facility] - DermPath Lab [address] [place] [address] Glenroy Broderick MD Squamous cell carcinoma of skin of right upper limb, including shoulder 10/27/2024 Lab Requisition [facility] Lab [address] [place] [address] Glenroy Broderick MD Neoplasm of uncertain behavior of skin from Last 3 Months Social History Tobacco Use Types Packs/Day Years Used Date Smoking Tobacco: Never Assessed Sex and Gender Information Value Date Recorded Sex Assigned at Not on file Gender Identity Not on file Sexual Orientation Not on file Plan of Treatment Health Maintenance Due Date Last Done Comments BONE DENSITY TESTING 1955 COLOGUARD (AGES 45-75) - COL ON CA SCREENING 1957 COLON MONITORING 1957 COLONOSCOPY - COLON CA SCREENING 1957 CT COLONOGRAPHY - COLON CA SCREENING 1957 Colorectal Cancer Screening 1957 FIT - COLON CA SCREENING 1957 FLEX SIG - COLON CA SCREENING 1957 LIPID TESTING 1957 MAMMOGRAM 1957 HEPATITIS C SCREENING 07/08/1975 DTAP/TDAP/TD VACCINES (1 - Tdap) 1976 PNEUMOCOCCAL VACCINE 50+ (1 of 1 - PCV) 2007 ZOSTER VACCINE (1 of 2) 2007 COVID-19 VACCINE ( - 2023-2 5 season) 2024 INFLUENZA VACCINE (#1) 2024 DEPRESSION SCREENING 11/26/2024 MEDICARE AWV CALENDAR YEAR 2024 Respiratory Syncytial Virus (RSV) Vaccine Pt: or over 60 yrs (1 - 1-dose 75+ series) 2032 HEPATITIS B VACCINE Aged Out No longe r eligible based on patient's age to complete this topic HIB VACCINE Aged Out No longer eligi ble based on patient's age to complete this topic HPV VACCINE Aged Out No longer eligi ble based on patient's age to complete this topic MENINGOCOCCAL (Group B) VACCINE Aged Out No longer eligible based on patient's age to complete this topic MENINGOCOCCAL VACCINE Aged Out No cynthia liana eligible based on patient's age to complete this topic Procedures Procedure Name Priority Date/Time Associated Diagnosis Comments DERMATOPATHOLOGY Routine 10/30/2024 12:0 0 AM GRID MAKER Squamous cell carcinoma of skin of right upper limb, including shoulder DERMATOPATHOLOGY Routine 10/27/2024 3:33 AM GRID MAKER Neoplasm of uncertain behavior of skin from Last 3 Months Results * DERMATOPATHOLOGY (10/30/2024 12:00 AM GRID MAKER) Only the most recent of2 resultswithin the time period is included. Case Report Dermatopathology Report Case: [id number] Authorizing Provider: Glenroy Broderick MD Collected: 10/30/2024 12:00 AM Ordering Location: [facility] - Received: 11/03/2024 02:05 PM DermPath Lab Pathologist: Jacquelyn Tapia MD Specimen: Skin, right forearm 4 2:22 PM GRID MAKER DERMATOPATHOLOGY LABORATORY Final Diagnosis Specimen A. SKIN, right forearm: DERMAL SCAR RESIDUAL SQUAMOUS CELL CARCINOMA NOT IDENTIFIED (L90.5) 4 2:22 PM GRID MAKER DERMATOPATHOLOGY LABORATORY Clinical History SCC Check margins 2:22 PM [facility] DERMATOPATHOLOGY LABORATORY Gross Description Specimen A: Received is one formalin filled container labeled with the patient's name and designated right forearm. The specimen consists of a non-oriented ellipse of skin measuring 60k80z1 mm. The epidermal surface is unremarkable. The margin is inked green. The 12 o'clock and 6 o'clock tips are submitted in cassette 1. The remainder of the ellipse is serially sectioned and submitted in cassette 2. Jar 0. 2:22 PM [facility] DERMATOPATHOLOGY LABORATORY Microscopic Description Specimen A. SKIN, right forearm: There are fibroblasts and collagen bundles oriented parallel to the skin surface. There are elongated blood vessels, some of which are oriented perpendicular to the skin surface. No residual squamous cell carcinoma is identified. 2:22 PM [facility] DERMATOPATHOLOGY LABORATORY Disclaimer An external and internal positive and negative controls are appropriate for the histochemical, immunohistochemical and immunofluorescence stain(s) in this case (if any), except where stated explicitly. The performance characteristics of the stain(s) cited in this report were developed and its performance characteristic determined by the Dermatopathology Laboratory at [facility], directed by Dr. Rene Merlos. These tests need not be, and therefore are not, approved by the [place] Food and Drug Administration. The tests are used for clinical purposes. Billing Codes Specimen Charges Stain Charges 16577 1 2:22 PM [facility] DERMATOPATHOLOGY LABORATORY Embedded Images 2:22 PM [facility] DERMATOPATHOLOGY LABORATORY Pathology/Cytolog y TISSUE SPECIMEN FROM SKIN / Unknown 10/30/2024 11/03/2024 2:05 PM [facility] Glenroy Broderick MD LAB - PATHOLOGY/CYTO LOGY ORDERABLES DERMATOPATHOLOGY LABORATORY [facility] - Department of Dermatology [address] [phone] from Last 3 Months [address] [phone]
--- OUTSIDE RECORDS SUMMARY | 2025-01-20 11:01 | XMS_ITS | Clinical Summary ---
Author Organization [facility] Address [address] [place] [phone] Care Team Providers Care Studio Operator Name Role Phone Unavailable Primary Care Provider Unavailabl e Social History Tobacco Use Types Packs/Day Years Used Date Smoking Tobacco: Never Assessed Comments Unknown Sex and Gender Information Value Date Recorded Sex Assigned at Not on file Legal Sex Female 12:27 PM FRANCHISE CONSULTANT Gender Identity Not on file Sexual Orientation Not on file Plan of Treatment Health Maintenance Due Date Last Done Comments DEXA Bone Density 1955 Hepatitis C Virus (HCV) Screening 1957 TdaP Immunization 1957 Colonoscopy 2002 Colorectal Cancer Screening 2002 Cologuard 2007 Immunochemical Fecal Occult Blood 2007 Mammogram 2007 Pneumococcal Immunization (5 0+ years) (1 of 1 - PCV) 2007 Zoster Immunization (1 of 2) 2007 Influenza Immunization (#1) 2024 08/04/2020 SARS-COV-2 Immunization ( - 2023-25 season) 2024 Respiratory Syncytial Virus (RSV) Immunization (Adult) (1 - 1-dose 75+ series) 2032 Hepatitis B Immunization Aged Out 999, 07/05/1999 No longer eligible based on patient's age to complete this topic Meningococcal Immunization (ACWY) Aged Out No longer eligible b ased on patient's age to complete this topic Rotavirus Immunization Aged Out No lo nger eligible based on patient's age to complete this topic
--- OUTSIDE RECORDS SUMMARY | 2025-01-20 11:01 | XMS_ITS | Patient Health Summary ---
Author Organization [facility] Address [address] [place] [address] Care Team Providers Care Garbage Man Name Role Phone Unavailable Primary Care Provider Unavailabl e Note from [facility],non-owned Affiliates and Associated Physician Practices is amultiple site organization consisting of ambulatory clinics and hospital sitesin [place], [place], [place] and [place]. This disclosure is being madepursuant to the Care Everywhere program and may not contain all information available regarding this patient. Last updated 18.[facility] Social History Tobacco Use Types Packs/Day Years Used Date Smoking Tobacco: Never Assessed Sex and Gender Information Value Date Recorded Sex Assigned at Not on file Gender Identity Not on file Sexual Orientation Not on file Procedures * DERMATOPATHOLOGY(Performed 10/30/2024) Performed for Squamous cell carcinoma of skin of right upper limb, including shoulder * DERMATOPATHOLOGY(Performed 10/27/2024) Performed for Neoplasm of uncertain behavior of skin * DERMATOPATHOLOGY(Performed 07/21/2024) Performed for Neoplasm of uncertain behavior of skin Results * DERMATOPATHOLOGY (10/30/2024 12:00 AM NATIONAL ACCOUNT EXECUTIVE) Only the most recent of3 resultswithin the time period is included. Case Report Dermatopathology Report Case: [id number] Authorizing Provider: Glenroy Broderick MD Collected: 10/30/2024 12:00 AM Ordering Location: [facility] - Received: 11/03/2024 02:05 PM DermPath Lab Pathologist: Jacquelyn Tapia MD Specimen: Skin, right forearm 4 2:22 PM NATIONAL ACCOUNT EXECUTIVE DERMATOPATHOLOGY LABORATORY Final Diagnosis Specimen A. SKIN, right forearm: DERMAL SCAR RESIDUAL SQUAMOUS CELL CARCINOMA NOT IDENTIFIED (L90.5) 4 2:22 PM NATIONAL ACCOUNT EXECUTIVE DERMATOPATHOLOGY LABORATORY Clinical History SCC Check margins 2:[address] [facility] DERMATOPATHOLOGY LABORATORY Gross Description Specimen A: Received is one formalin filled container labeled with the patient's name and designated right forearm. The specimen consists of a non-oriented ellipse of skin measuring 59u47m3 mm. The epidermal surface is unremarkable. The margin is inked green. The 12 o'clock and 6 o'clock tips are submitted in cassette 1. The remainder of the ellipse is serially sectioned and submitted in cassette 2. Jar 0. 2:[address] [facility] DERMATOPATHOLOGY LABORATORY Microscopic Description Specimen A. SKIN, right forearm: There are fibroblasts and collagen bundles oriented parallel to the skin surface. There are elongated blood vessels, some of which are oriented perpendicular to the skin surface. No residual squamous cell carcinoma is identified. 2:[address] [facility] DERMATOPATHOLOGY LABORATORY Disclaimer An external and internal positive and negative controls are appropriate for the histochemical, immunohistochemical and immunofluorescence stain(s) in this case (if any), except where stated explicitly. The performance characteristics of the stain(s) cited in this report were developed and its performance characteristic determined by the Dermatopathology Laboratory at [facility], directed by Dr. Rene Merlso. These tests need not be, and therefore are not, approved by the [place] Food and Drug Administration. The tests are used for clinical purposes. Billing Codes Specimen Charges Stain Charges 62798 1 4 2:[address] [facility] DERMATOPATHOLOGY LABORATORY Embedded Images 2:[address] [facility] DERMATOPATHOLOGY LABORATORY Pathology/Cytolog y TISSUE SPECIMEN FROM SKIN / Unknown 10/30/2024 11/03/2024 2:[address] [facility] Glenroy Broderick MD LAB - PATHOLOGY/CYTO LOGY ORDERABLES DERMATOPATHOLOGY LABORATORY [facility] - Department of Dermatology [address] [phone]
--- OUTSIDE RECORDS SUMMARY | 2025-01-20 11:01 | XMS_ITS | Encounter Summary ---
Author Organization [facility] Address [address] [place] [address] Care Team Providers Care Jewel Sawyer Name Role Phone Mohan Walters DO Primary Care Provider + Valdo García MD Unavailable [phone] Encounter Details Date Type Department Care Team (Late st Contact Info) Description 12/03/2024 Amiatot Message Enc [facility] Family & Internal Medicine [facility] [address] [place] [address] Mohan Walters DO [address] [place] [address] MRI Social History Tobacco Use Types Packs/Day Years [...] Sex Assigned at Female 12/22/2024 12:33 PM PRODUCTION PLANNING SUPERVISOR Legal Sex Female 2:34 PM CDT Gender Identity Not on file Sexual Orientation Not on file 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 Not on file Not [...] Date Type Department Care Team (Late st [facility] Info) Description 01/22/2025 11:40 AM PRODUCTION PLANNING SUPERVISOR Office Visit [facility] Family & Internal Medicine [address] [phone] Mohan Walters DO [address] [place] [phone] documented as of this encounter Visit Diagnoses Not on filedocumented in this encounter Additional Health Concerns Assessment Noted Time PHQ-9 Depression Total Score: 6 03/16/20 22 1:58 PM CDT documented as of this encounter Care Teams Jewel Sawyer Relationship Specialty Start Date End Date Mohan Walters DO [address] [place] [phone] PCP - General FAMILY PRACTICE 05/15/19 Valdo García MD [address] [facility] [address] [place] [address] Consulting Physician CARDIOVASCULAR DISEASE 05/28/19 documented as of this encounter
--- OUTSIDE RECORDS SUMMARY | 2025-01-20 11:02 | XMS_ITS | Clinical Summary ---
Author Organization [facility] Address [address] [place] [address] Care Team Providers Care Foil Spooler Name Role Phone Mohan Walters DO Primary Care Provide r Allergies Active Allergy Reactions Criticality Noted Date Comments Animal Dander Other (See comments) Low 07/20/2020 Allergy to dogs, cats, dust, mold, pollen Allergy symptoms Carbamazepine Syncope High 08/30/2021 Erythromycin Other (See comments) Low 03/14/2014 Levofloxacin Hives Medium Methocarbamol Rash Medium 08/09/2020 Penicillins Hives Medium Sulfa (Sulfonamide Antibiotics) Other (See comments) Low weakness Topiramate Other (See comments) Low 08/28/2023 The patient states Topamax caused SE of depression/worseni ng of mood Medications calcium carbonate-abi min D3 (CALCIUM 600 + D,3,) 1500 mg (600 mg elemental) -200 units per tabletIndicati ons:supplement Take 1 tablet by mouth nightly 12/27/19 13 Active cholecalcifero l (VITAMIN D-3) 2,000 unit capsuleIndicat ions:supplemen t Take 1 capsule (2,000 Units total) by mouth nightly Active DULoxetine DR (CYMBALTA) 60 mg capsuleIndicat ions:Anxiety with Depression Take 2 capsules (120 mg total) by mouth daily after lunch 05/02/20 21 Active montelukast (SINGULAIR) 10 mg tabletIndicati ons:Seasonal Allergic Rhinitis Take 1 tablet (10 mg total) by mouth every morning 04/19/20 21 Active cyanocobalamin (Vitamin B-12) 1,000 mcg tabletIndicati ons:supplement Take 1 tablet (1,000 mcg total) by mouth every morning Active ALPRAZolam (XANAX) 1 mg tabletIndicati ons:anxiety Take 1 tablet (1 mg total) by mouth daily as needed for anxiety 07/29/20 22 Active ferrous sulfate 325 mg (65 mg of elemental iron) tabletIndicati ons:Iron Deficiency Anemia Take 1 tablet (65 mg of elemental iron total) by mouth nightly Active ergocalciferol (VITAMIN D) 50,000 unit capsuleIndicat ions:Vitamin D Deficiency Take 1 capsule (50,000 Units total) by mouth once a week for 28 days 4 capsule 06/07/20 23 Active calcitRIOL (ROCALTROL) 0.25 mcg capsuleIndicat ions:supplemen t Take 1 capsule (0.25 mcg total) by mouth every morning 90 capsule 3 05/14/20 24 025 Active Drysol Dab-O-Matic 20 % external solution APPLY SOLUTION ONCE DAILY AT BEDTIME 04/22/20 24 Active amitriptyline (ELAVIL) 10 mg tablet Take 1 tablet (10 mg total) by mouth nightly 30 tablet 11 05/14/20 24 025 Active glycopyrrolate (ROBINUL) 2 mg tablet Take 1 tablet (2 mg total) by mouth 2 (two) times a day 07/23/20 24 Active levothyroxine (SYNTHROID) 112 mcg tablet Take 1 tablet (112 mcg total) by mouth daily 30 tablet 11 10/09/20 24 025 Active baclofen (LIORESAL) 10 mg tablet 11/13/20 24 Active naproxen (NAPROSYN) 500 mg tablet Take 1 tablet (500 mg total) by mouth 2 times daily 11/12/20 24 Active oxyBUTYnin (DITROPAN) 5 mg tablet Take 1 tablet (5 mg total) by mouth daily 10/31/20 24 Active oxyCODONE-acet aminophen (PERCOCET) 5-325 mg per tabletIndicati ons:Pain Take 1 tablet by mouth every 6 (six) hours as needed for pain 28 tablet 12/24/19 25 Active pregabalin (LYRICA) 200 mg capsule TAKE 1 CAPSULE BY MOUTH THREE TIMES DAILY 90 capsule 01/19/20 25 Active pregabalin (LYRICA) 200 mg capsule TAKE 1 CAPSULE BY MOUTH THREE TIMES DAILY 90 capsule 12/19/19 25 025 Discontinued Active Problems Problem Noted Date Diagnosed Date Avascular necrosis of bone of left hip 4 Moderate episode of recurrent major depressive d isorder 01/03/2024 Primary osteoarthritis of left hip 10/27/2022 Overview (10/27/2022): Added automatically from request for surgery [id number] Neuropathic pain 08/29/2021 Assessment & Plan (08/29/2021 5:21 PM CDT): Bilateral lower extremity pain in the setting of length dependent neuropathy and spinal stenosis. Has newer, potentially separate, right sided facial and oral pain in V3 distribution of unclear etiology. Neuropathy screening bloodwork Continue pregabalin for now; will ideally find alternative that does not lead to so much swelling Stop carbamazepine Stop baclofen Consider amitriptyline (note: patient is already on duloxetine) Consider mandibular nerve block (referral to pain management) Will message patient about topical treatments (lidocaine, voltaren gel, capsaicin) Peripheral neuropathy 06/10/2021 Burning sensation of foot 12/16/2020 Pseudoarthrosis of lumbar spine 12/16/2020 Degenerative disc disease, lumbar 07/28/2020 S/P lumbar fusion 07/28/2020 Pure hypercholesterolemia 07/13/2020 Spinal instability of lumbar region 05/06/2020 Elevated blood-pressure read ing without diagnosis of hypertension 06/16/2019 Generalized anxiety disorder 05/18/2019 Numbness around mouth 05/18/2019 Cervical radiculopathy 05/18/2019 Anxiety 05/15/2019 Iatrogenic hypocalcemia 02/14/2019 Postoperative hypothyroidism 02/14/2019 Assessment & Plan (07/29/2024 4:38 PM CDT): 69 y.o. female with postoperative hypothyroidism: Clinically euthyroid and stable on current dose of Levothyroxine 137 mcg qAM (previously taking 112 mcg; recently increased dosage on 06/27/2024 based upon her labs), although biochemical evidence shows TSH remains elevated, despite normalization of FT4 and mildly low FT3. Previously had been Rx Cytomel 5 mcg BID (perhaps by PCP or previous Endo). She has had a history of labile thyroid function tests over the years with various replacement regimens, including both LT3 and LT4. Goal now is to stabilize and maintain consistent regimen. She does take calcium-vitamin D supplements and iron in the past as well, which may be affecting levels (reduced absorption) She is here today with . Medication adherent with no missed doses and states she is feeling a bit better compared to a few months ago. However, she did suffer a mechanical fall getting out of shower and fractured her left wrist (cast on left forearm, distal radius fracture secondary to fall on an outstretched hand fall on an outstretched hand - FOOSH injury). Denies active symptoms: no cold intolerance, no fatigue, no constipation, no mood-menstrual changes, no weight gain No thyroid enlargement, masses, nodules, or tenderness No bradycardia, no non-pitting edema, no delayed relaxation of tendon reflexes No evidence of hyponatremia on recent basic metabolic panel Lab Results Component Value Date TSH 19.000 (H) 06/25/2024 T3FREE 2.2 (L) 07/17/2023 FREET4 0.91 06/25/2024 Patient denies taking any high-potency biotin-containing supplements (altered testing) Patient is taking calcium-vitamin D supplements (reduced absorption) Plan: 1) Continue Levothyroxine 137 mcg qAM (60 min before first meal); avoid other medications inhibiting absorption - goal is to normalize TSH & FT4 2) Repeat thyroid function studies (TSH and Free T4) in 2 weeks and again in 6-8 weeks if dose adjusted - labs ordered at [facility] 3) Check lipid panel (hypothyroidism assoc with hyperlipidemia) Assessment & Plan (11/28/2023 4:52 PM CONSTRUCTION ASSISTANT): 68 y.o. female with hypothyroidism due to Postoperative hypothyroidism Clinically euthyroid and stable on current dose of Levothyroxine 88 mcg qAM - adherent with no missed doses Denies active symptoms: no cold intolerance, no fatigue, no constipation, no mood-menstrual changes, no weight gain No thyroid enlargement, masses, nodules, or tenderness No bradycardia, no non-pitting edema, no delayed relaxation of tendon reflexes No evidence of hyponatremia on recent basic metabolic panel Latest Thyroid Function Tests (05/28/2023 -> 07/17/2023): TSH = 4.79(H) -> 8.65(H) Free T4 = N/A -> 1.0 normal Free T3 = N/A -> 2.2(L) Antibodies: anti-TPO Abs and TSI = N/A Latest Thyroid US = N/A Patient denies taking any high-potency biotin-containing supplements (altered testing) Patient is taking calcium or iron supplements (reduced absorption) Typical dosing for oral Levothyroxine starts at 1.6 mcg/kg (ideal body weight) Plan: 1) Consider INCREASE Levothyroxine 88 -> 100 mcg qAM (60 min before first meal); avoid other medications inhibiting absorption 2) Repeat thyroid function studies (TSH and Free T4) in 6-8 weeks if dose adjusted or annually, if stable 3) Check lipid panel (hypothyroidism assoc with hyperlipidemia) Assessment & Plan (05/30/2023 4:55 PM CDT): 67 y.o. female with hypothyroidism due to Postoperative hypothyroidism Clinically euthyroid and stable on current dose of Levothyroxine 88 mcg qAM - adherent with no missed doses Denies active symptoms: no cold intolerance, no fatigue, no constipation, no mood-menstrual changes, no weight gain No thyroid enlargement, masses, nodules, or tenderness No bradycardia, no non-pitting edema, no delayed relaxation of tendon reflexes No evidence of hyponatremia on recent basic metabolic panel Latest Thyroid Function Tests (05/28/2023): TSH = 4.79(H) Free T4 = N/A Free T3 = N/A Antibodies: anti-TPO Abs and TSI = N/A Latest Thyroid US = N/A Patient denies taking any high-potency biotin-containing supplements (altered testing) Patient is taking calcium or iron supplements (reduced absorption) Typical dosing for oral Levothyroxine starts at 1.6 mcg/kg (ideal body weight) Plan: 1) Continue Levothyroxine 88 mcg qAM (60 min before first meal); avoid other medications inhibiting absorption 2) Repeat thyroid function studies (TSH and Free T4) in 6-8 weeks if dose adjusted or annually, if stable 3) Check lipid panel (hypothyroidism assoc with hyperlipidemia) Assessment & Plan (09/30/2020 2:36 PM CONSTRUCTION ASSISTANT): Check TFT's Adjust dose of levothyroxine as indicated Assessment & Plan (02/26/2020 5:16 PM CDT): Check TFT's Adjust dose of levothyroxine , if indicated Send rx Assessment & Plan (07/03/2019 5:01 PM CDT): Continue levothyroxine at current dose of 88 mcg daily and 2 tablets on Sundays Importance of taking the medication in the mornings and stomach was emphasized Use of brand name versus generic, is strongly recommended. Postsurgical hypoparathyroidism 02/14/2019 Assessment & Plan (07/29/2024 4:30 PM CDT): 69 y.o. female with history of hypocalcemia secondary to postoperative hypoparathyroidism (total thyroidectomy), evidenced by low serum total calcium (albumin-corrected to <8.6 mg/dL) and/or low serum ionized calcium <4.5 mg/dL with concomitant low parathyroid hormone levels. Chronic management of hypocalcemia with supplemental calcium + Vitamin D formulations. Taking calcium carbonate-vitamin D3 (CALCIUM 600 + D3) 1500 mg (600 mg elemental) -200 units per tablet nightly + started on ergocalciferol (VITAMIN D) 50,000 unit capsule q weekly now and replaced with Rx for Calcitriol 0.25 mcg daily (active, synthetic vitamin D) Latest Tests (05/28/2023 and 07/17/2023): Serum Ca = 8.5(L) Ionized Ca = 4.3L) Intact PTH = 10(L) Vit D 25(OH) = 31 normal Plan: 1) Check serum + ionized Ca + renal function panel (RFP) + PTH 2) Check 24-hour urinary excretion of calcium & creatinine 3) Check vitamin D 25(OH) and 1,25(OH) 4) Check bone turnover markers - CTX-1, NTX-1, Hydroxyproline, P1CP, P1NP, ALP (total and bone-specific), Osteocalcin (OC) 5) Check Mg and Phos Assessment & Plan (05/30/2023 4:55 PM CDT): 67 y.o. female with history of hypocalcemia secondary to postoperative hypoparathyroidism (total thyroidectomy), evidenced by low serum total calcium (albumin-corrected to <8.6 mg/dL) and/or low serum ionized calcium <4.5 mg/dL with concomitant low parathyroid hormone levels. Chronic management of hypocalcemia with supplemental calcium + Vitamin D formulations. Plan: 1) Check serum + ionized Ca + renal function panel (RFP) + PTH 2) Check 24-hour urinary excretion of calcium & creatinine 3) Check vitamin D 25(OH) and 1,25(OH) 4) Check bone turnover markers - CTX-1, NTX-1, Hydroxyproline, P1CP, P1NP, ALP (total and bone-specific), Osteocalcin (OC) 5) Check Mg and Phos Goal is to maintain total serum calcium around at or just below lower limit normal (8.0 to 8.5 mg/dl) Assessment & Plan (09/30/2020 2:36 PM CONSTRUCTION ASSISTANT): Check serum Ca , PTH, 25 oh vit D , urine calcium Continue Ca, Rocaltrol Assessment & Plan (02/26/2020 5:17 PM CDT): Risk of hypercalciuria discussed Check 24 h urine calcium Check BMP Ca 500 mg tid, Rocaltrol 0.25 mcg daily Assessment & Plan (07/03/2019 5:01 PM CDT): Increase calcium carbonate to 1200 mg with lunch and 600 mg with dinner Continue calcitriol 0.25 mcg daily. Will check 24 hour calcium and serum calcium in 4 weeks Hypoparathyroidism 01/04/2018 Assessment & Plan (11/28/2023 4:53 PM CONSTRUCTION ASSISTANT): 68 y.o. female with history of hypocalcemia secondary to postoperative hypoparathyroidism (total thyroidectomy), evidenced by low serum total calcium (albumin-corrected to <8.6 mg/dL) and/or low serum ionized calcium <4.5 mg/dL with concomitant low parathyroid hormone levels. Chronic management of hypocalcemia with supplemental calcium + Vitamin D formulations. Taking calcium carbonate-vitamin D3 (CALCIUM 600 + D,3,) 1500 mg (600 mg elemental) -200 units per tablet nightly + started on ergocalciferol (VITAMIN D) 50,000 unit capsule q weekly Latest Tests (05/28/2023 and 07/17/2023): Serum Ca = 8.5(L) Ionized Ca = 4.3L) Intact PTH = 10(L) Vit D 25(OH) = 31 normal Plan: 1) Check serum + ionized Ca + renal function panel (RFP) + PTH 2) Check 24-hour urinary excretion of calcium & creatinine 3) Check vitamin D 25(OH) and 1,25(OH) 4) Check bone turnover markers - CTX-1, NTX-1, Hydroxyproline, P1CP, P1NP, ALP (total and bone-specific), Osteocalcin (OC) 5) Check Mg and Phos History of spinal surgery 11/09/2017 Postlaminectomy syndrome of lumbar region 2016 Obesity 03/20/2016 Numbness of extremity 08/27/2014 Peripheral muscle fatigue 08/27/2014 Neoplastic disease 02/11/2014 Allergic rhinitis due to pollen 06/27/2013 Chest pain 12/27/2012 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 Encounters Date Type Department Care Team Description 12/24/2024 Orders Only [facility] Endocrinology Metabolism and Lipid [address] [facility] [address] [place] [address] [place] [address] Rimma Root RMA Hypothyroidism, unspecified type (Primary Dx); Hypoparathyroidism, unspecified hypoparathyroidism type (HCC); Postsurgical hypoparathyroidism (HCC); Postoperative hypothyroidism; Vitamin D deficiency 12/03/2024 6:24 PM CONSTRUCTION ASSISTANT - 12/03/2024 11:59 PM CONSTRUCTION ASSISTANT Hospital Encounter [facility] [address] [place] [address] Discharge Disposition: Discharge to home or self care 12/03/2024 Orders Only [facility] Orthopaedic Surgery [address] [place] [address] Lester Cordoba MD Right hip pain 11/24/2024 Orders Only [facility] ([facility] [address] [facility] [address] [place] [address] Lester Cordoba MD Right hip pain (Primary Dx) 11/24/2024 Orders Only [facility] [address] [place] [address] Lester Cordoba MD 11/17/2024 Orders Only [facility] Orthopaedic Surgery [address] [facility] [facility] 1[address] [place] [address] Lester Cordoba MD 11/14/2024 12:15 PM CONSTRUCTION ASSISTANT - 11/14/2024 11:59 PM CONSTRUCTION ASSISTANT Hospital Encounter [facility] Radiology at [facility] [address] [place] [address] Right hip pain; Right thigh pain; Right groin pain Discharge Disposition: Discharge to home or self care 11/14/2024 12:00 PM CONSTRUCTION ASSISTANT Office Visit [facility] [address] [facility] [place] [address] Lester Cordoba MD Right hip pain (Primary Dx); Right thigh pain; Right groin pain 10/20/2024 Telephone [facility] Endocrinology Metabolism and Lipid [address] [facility] 5th [place] [address] [place] [address] Rimma Root RMA from Last 3 Months Immunizations Immunization Administration Dates Next Due Hep B, Adolescent or Pediatric 08/29/1999,1998 Hep B, Unspecified 08/29/1999,07/05/1999 Influenza, Quadrivalent, Spl it, Preservative Free, Intramuscular 08/04/2020 Influenza, Trivalent, High D ose, Split, Preservative Free, Intramuscular 08/27/2024 Influenza, Unspecified 08/30/2023,08/26/2022, Tdap 03/15/2021 ZOSTER Recombinant 11/04/2023,09/02/2023 Surgical History Surgery Date Site/Laterality Comments SINUS SURGERY Sinus Surgery - (Added by TW Conv) THYROID SURGERY Thyroid Surgery - (Added by TW Conv) BACK SURGERY Back Surgery - (Added by TW Conv) SECTION SPINAL FUSION JOINT REPLACEMENT Jan 2023 TUBAL LIGATION Medical History Medical History Date Comments Personal history of other di seases of the musculoskeletal system and connective tissue History of arthritis - (Adde d by TW Conv) Personal history of other di seases of the musculoskeletal system and connective tissue History of back pain - (Adde d by TW Conv) Pain of lower extremity Leg pain - (Added by TW Conv) Other disturbances of skin sensation Burning sensation of feet - (Added by TW Conv) Anxiety Depression Hypothyroidism Chronic pain disorder Joint pain Arthritis 2008 Cataract Family History Medical History Relation Name Comments Cancer Brother Oh hernandez Hearing loss Father Oh Heart disease Father Oh Family history of cardiac disorder - (Added by TW Conv) Hypertension Father Oh Cancer Maternal Grandmother Roberta Arthritis Mother Geni Sunshine Depression Mother Geni Sunshine Heart disease Other Family history of cardiac disorder - (Added by TW Conv) Relation Name Status Comments Brother Oh hernandez Father Oh Maternal Grandmother Roberta Mother Geni Sunshine Other Social History Tobacco Use Types Packs/Day Years Used Date Smoking Tobacco: Never Cigarettes Passive Smoke Exposure: Never Smokeless Tobacco: Never Tobacco Cessation:Counseling Given: Not Answered AUDIT-C Answer Date Recorded Q1: How often do you have a drink containing alcohol? Never 06/12/2024 Q2: How many drinks containi ng alcohol do you have on a typical day when you are drinking? Patient does not drink Q3: How often do you have si x or more drinks on one occasion? Never 06/12/2024 PHQ-2 Answer Date Recorded PHQ-2 Total Score (If total score is 3 or more points, staff should administer the PHQ-9) 0 09/30/2020 Personal Safety Answer Date Recorded Getting School Help Needed Denies 11/07 Comments No Sex and Gender Information Value Date Recorded Sex Assigned at Not on file Legal Sex Female 8:50 PM CONSTRUCTION ASSISTANT Gender Identity Not on file Sexual Orientation Not on file Obstetrics History Last Filed Vital Signs Vital Sign Reading Time Taken Comments Blood Pressure 129/79 07/31/2024 4:16 PM CDT Pulse 65 07/31/2024 4:16 PM CDT Temperature 36.9 C (98.5 F) 07/31/2024 4:16 PM CDT Respiratory Rate 18 07/31/2024 4:16 PM CDT Oxygen Saturation 97% 07/31/2024 4:16 PM CDT Inhaled Oxygen Concentration - - Weight 95.3 kg (210 lb) 11/14/2024 12:10 PM CONSTRUCTION ASSISTANT Height 160 cm (5' 3 ) 11/14/2024 12:10 PM CONSTRUCTION ASSISTANT Body Mass Index 37.2 11/14/2024 12:10 PM CONSTRUCTION ASSISTANT Plan of Treatment Health Maintenance Due Date Last Done Comments Colon Cancer Screening-Colonoscopy 1955 Hepatitis C Screening 1955 Pneumococcal vaccine 65+ (1 of 1 - PCV) 2007 Depression Screening 09/30/2021 09/30/2020, 02/26/2020, 07/03/2019 Well Visit 65+ 2022 Osteoporosis Screening-Bone Density Scan 03/30/2023 03/30/2021, 03/20/2016 Fall Risk Assessment 01/23/2024 01/23/2023, 09/28/2022, 09/01/2022 Covid-19 Vaccine (5 - 2023-2 5 season) 2024 04/09/2022, 10/15/2021, 02/08/2021, Additional history exists Breast Cancer Screening-Mammogram 06/09/2025 06/09/2024, 06/09/2024, 05/01/2023, Additional history exists DTaP/Tdap/Td Vaccine (2 - Td or Tdap) 03/15/2031 03/15/2021 Hepatitis B Screening Completed 08/29/1999 , 08/29/1999, 07/05/1999, Additional history exists Zoster Vaccine Completed 11/04/2023, 09/02/2023 Influenza Vaccine Completed 08/27/2024, , 08/26/2022, Additional history exists Goals Goal Patient Goal Type Associated Problems Recent Progress Patient-Stated? Author CCM Chronic Pain Care Plan Chronic Care Management Danita Lima, RN Note: Problem: Chronic Pain Goals: 1. Minimize further functional decline 2. Maximize quality of life 3. Control pain Strategies: - Activity/exercise program recommendation - Conservative stepwise pain medicine strategy with multi-disciplinary approach - Recommend healthy lifestyle strategies and compensatory methods as needed Reduce the likelihood of falling Lifestyle Danita Lima RN Note: Below are four things you can do to prevent falls: Begin an exercise program to improve your leg strength & balance Ask your doctor or pharmacist to review your medicines Get annual eye check-ups & update your eyeglasses Make your home safer by: Removing clutter & tripping hazards Putting railings on all stairs & adding grab bars in the bathroom Having good lighting, especially on stairs Contact your local community or [facility] for information on exercise, fall prevention programs, or options for improving home safety. Medical Devices Implanted Type Area Senior Commissions Analyst Device Identifier Shelf Expiration Date Model / Serial / Lot Cage Spine Lumbar [employer] G7 40mm 2 Mobility Hip D Liner Acetabular Cocr [id number] - [id number] Implanted:Qty: 1 on 01/22/2023 by Arnold Rizo MD at [facility] [employer] [id number] 10/23/2032 [id number] / / [id number] [employer] Trilogy 6.5mm 30mm Self Tap Acetabular Cortical Screw Bone [id number] - [id number] Implanted:Qty: 1 on 01/22/2023 by Arnold Rizo MD at [facility] [employer] [id number] 11/28/2032 [id number] / / [id number] [employer] G7 50mm Multihole Hip D Hemisphere Offset Shell Acetabular [id number] - [id number] Implanted:Qty: 1 on 01/22/2023 by Arnold Rizo MD at [facility] [employer] [id number] 09/20/2032 [id number] / / [id number] [employer] Trilogy 6.5mm 25mm Self Tap Screw Bone [id number] - [id number] Implanted:Qty: 1 on 01/22/2023 by Arnold Rizo MD at [facility] [employer] [id number] 09/06/2032 [id number] / / [id number] [employer] 40mm 28mm Lumen Hip D Liner Acetabular Longevity Sterile Latex [id number] - [id number] Implanted:Qty: 1 on 01/22/2023 by Arnold Rizo MD at [facility] [employer] [id number] 10/11/2027 [id number] / / [id number] [employer] Articul/Ky 28mm Cementless Hip +5mm 11/08 Taper Head Femoral Latex Free [id number] - [id number] Implanted:Qty: 1 on 01/22/2023 by Arnold Rizo MD at [facility] [employer] [id number] 09/25/2027 [id number] / / [id number] [employer] Actis Collared Hip 11/08 4 Standard Offset Stem Femoral [id number] - [id number] Implanted:Qty: 1 on 01/22/2023 by Arnold Rizo [facility] [employer] [id number] 06/25/2032 [id number] / / [id number] Procedures Procedure Name Priority Date/Time Associated Diagnosis Comments CALCIUM, IONIZED Routine 12/26/2024 9:11 AM CONSTRUCTION ASSISTANT Hypothyroidism, unspecified type Hypoparathyroidism, unspecified hypoparathyroidism type (HCC) Postsurgical hypoparathyroidism (HCC) Postoperative hypothyroidism Vitamin D deficiency PTH Routine 12/26/2024 9:11 AM CONSTRUCTION ASSISTANT Hypothyroidism, unspecified type Hypoparathyroidism, unspecified hypoparathyroidism type (HCC) Postsurgical hypoparathyroidism (HCC) Postoperative hypothyroidism Vitamin D deficiency T4, FREE Routine 12/26/2024 9:11 AM CONSTRUCTION ASSISTANT Hypothyroidism, unspecified type Hypoparathyroidism, unspecified hypoparathyroidism type (HCC) Postsurgical hypoparathyroidism (HCC) Postoperative hypothyroidism Vitamin D deficiency T3, FREE Routine 12/26/2024 9:11 AM CONSTRUCTION ASSISTANT Hypothyroidism, unspecified type Hypoparathyroidism, unspecified hypoparathyroidism type (HCC) Postsurgical hypoparathyroidism (HCC) Postoperative hypothyroidism Vitamin D deficiency TSH Routine 12/26/2024 9:11 AM CONSTRUCTION ASSISTANT Hypothyroidism, unspecified type Hypoparathyroidism, unspecified hypoparathyroidism type (HCC) Postsurgical hypoparathyroidism (HCC) Postoperative hypothyroidism Vitamin D deficiency RENAL FUNCTION PANEL Routine 12/26/2024 9:10 AM CONSTRUCTION ASSISTANT Hypothyroidism, unspecified type Hypoparathyroidism, unspecified hypoparathyroidism type (HCC) Postsurgical hypoparathyroidism (HCC) Postoperative hypothyroidism Vitamin D deficiency MSK MR OUTSIDE REFERENCE Routine 12/03/2024 6:24 PM CONSTRUCTION ASSISTANT MRI HIP RIGHT WO CONTRAST Schedule Routine, Read Routine (OP Routine) 12/03/2024 3:47 PM CONSTRUCTION ASSISTANT Right hip pain XR PELVIS 1 OR 2 VIEWS Schedule Routine, Read Routine (OP Routine) 11/14/2024 12:22 PM CONSTRUCTION ASSISTANT Right hip pain Right thigh pain Right groin pain BONE MINERAL DENSITY 03/20/2016 from Last 3 Months or Most Recently Relevant to Health Maintenance Results * Calcium, ionized (12/26/2024 9:11 AM CONSTRUCTION ASSISTANT) Pathologist [facility] Calcium, Ionized, Serum 4.7 4.5 - 5.6 mg/dL [facility] - 01 Blood 12/26/2024 9:11 AM CONSTRUCTION ASSISTANT 12/26/2024 Narrative [facility] - 12/29/2024 3:07 PM CONSTRUCTION ASSISTANT Performed at: - [facility] [address] [id number] Pattern Weaver: Braulio Hopkins PhD, Phone: [phone] us Perry Breaux MD PhD LAB BLOOD ORDERABLES Fin al Result [facility] - 01 * T3, free (12/26/2024 9:11 AM CONSTRUCTION ASSISTANT) Pathologist [facility] Triiodothyronin e,Free,Serum 2.0 2.0 - 4.4 pg/mL [facility] - 01 Blood 12/26/2024 9:11 AM CONSTRUCTION ASSISTANT 12/26/2024 Narrative [facility] - 12/27/2024 7:09 AM CONSTRUCTION ASSISTANT Performed at: [address] [place] [id number] Pattern Weaver: Braulio Hopkins PhD, Phone: [phone] Result [facility] Perry Breaux MD PhD LAB BLOOD ORDERABLES Fin al Result Performing Organization Address City/[facility]/ZIP Co de Phone Number [facility] - * TSH (12/26/2024 9:11 AM CONSTRUCTION ASSISTANT) Pathologist [facility] TSH 3.240 0.450 - 4.500 uIU/mL [facility] - 01 Blood 12/26/2024 9:11 AM CONSTRUCTION ASSISTANT 12/26/2024 Narrative [facility] - 12/27/2024 7:09 AM CONSTRUCTION ASSISTANT Performed at: [address] [place] [id number] Pattern Weaver: Braulio Hopkins PhD, Phone: [phone] Result [facility] Perry Breaux MD PhD LAB BLOOD ORDERABLES Fin al Result Performing Organization Address City/[facility]/ZIP Co de Phone Number [facility] - * T4, free (12/26/2024 9:11 AM CONSTRUCTION ASSISTANT) Pathologist [facility] T4,Free(Direct) 1.47 0.82 - 1.77 ng/dL [facility] - 01 Blood 12/26/2024 9:11 AM CONSTRUCTION ASSISTANT 12/26/2024 Narrative [facility] - 12/27/2024 7:09 AM CONSTRUCTION ASSISTANT Performed at: [address] [place] [id number] Pattern Weaver: Braulio Hopkins PhD, Phone: [phone] Perry Breaux MD PhD LAB BLOOD ORDERABLES Fin al Result [facility] - 01 * (ABNORMAL) PTH (12/26/2024 9:11 AM CONSTRUCTION ASSISTANT) PTH Intact 5(L) 15 - 65 pg/mL [facility] - 01 Blood 12/26/2024 9:11 AM CONSTRUCTION ASSISTANT 12/26/2024 Narrative [facility] - 12/28/2024 3:07 PM CONSTRUCTION ASSISTANT Performed at: [address] [id number] Pattern Weaver: Braulio Hopkins PhD, Phone: [phone] Perry Breaux MD PhD LAB BLOOD ORDERABLES Fin al Result Performing Organization Address City/[facility] Co de Phone Number [facility] - 01 * Renal function panel (12/26/2024 9:10 AM CONSTRUCTION ASSISTANT) Pathologist [facility] Glucose 83 70 - 99 mg/dL [facility] - 01 BUN 19 8 - 27 mg/dL [facility] - 01 Creatinine, Serum 0.80 0.57 - 1.00 mg/dL [facility] - 01 eGFR 81 >59 mL/min/1.73 [facility] - 01 BUN/creat ratio 24 12 - 28 [facility] - 01 Sodium 137 134 - 144 mmol/L [facility] - 01 Potassium, sr 4.3 3.5 - 5.2 mmol/L [facility] - 01 Chloride 98 96 - 106 mmol/L [facility] - 01 CO2 27 20 - 29 mmol/L [facility] - 01 Calcium 8.8 8.7 - 10.3 mg/dL [facility] - 01 Phosphorus, sr 4.3 3.0 - 4.3 mg/dL [facility] - 01 Albumin 4.3 3.9 - 4.9 g/dL [facility] - 01 Blood 12/26/2024 9:10 AM CONSTRUCTION ASSISTANT 12/26/2024 Narrative [facility] - 12/27/2024 7:09 AM CONSTRUCTION ASSISTANT Performed at: - [facility] [address] [place], [place] [id number] Pattern Weaver: Braulio Hopkins PhD, Phone: [phone] Perry Breaux MD PhD LAB BLOOD ORDERABLES Fin al Result Performing Organization Address [facility] Co de Phone Number [facility] - 01 * MSK MR Outside Reference (12/03/2024 6:24 PM CONSTRUCTION ASSISTANT) Impressions [facility] - 12/03/2024 6:24 PM CONSTRUCTION ASSISTANT These images are for Reference purposes only and have not been reviewed by [facility]. There will be no report generated by a [facility] Radiologist. Narrative [facility] - 12/03/2024 6:24 PM CONSTRUCTION ASSISTANT EXAMINATION: Images For Reference Purposes Only Lester Cordoba MD IMG MRI PROCEDURES Final Re sult Performing Organization Address [facility] Co de Phone Number [email or web address] * MRI Hip Right WO Contrast (12/03/2024 3:47 PM CONSTRUCTION ASSISTANT) Anatomical Region Laterality Modality Lower Extremities Right Magnetic Reson ance Lester Cordoba MD IMG MRI PROCEDURES Final Re sult * XR Pelvis 1 or 2 Views (11/14/2024 12:22 PM CONSTRUCTION ASSISTANT) Anatomical Region Laterality Modality Body, Pelvis N/A Computed Radiogr aphy 11/14/2024 12:3 3 PM CONSTRUCTION ASSISTANT Impressions 11/14/2024 12:33 PM CONSTRUCTION ASSISTANT Unchanged mild to moderate right hip osteoarthritis. Electronically signed by: Pedro Barkley MD Narrative 11/14/2024 12:33 PM CONSTRUCTION ASSISTANT EXAMINATION: XR PELVIS 1 OR 2 VIEWS HISTORY: Right hip pain, osteoarthritis FINDINGS: Comparison dated 04/24/2023. Normal alignment. No pelvic diastasis. Mild to moderate right hip osteoarthritis. Total left hip arthroplasty is unchanged. Incompletely evaluated combined anterior and posterior instrumented spinal fusion. No soft tissue abnormalities. Procedure Note Pedro Barkley MD - 11/14/2024 EXAMINATION: XR PELVIS 1 OR 2 VIEWS HISTORY: Right hip pain, osteoarthritis FINDINGS: Comparison dated 04/24/2023. Normal alignment. No pelvic diastasis. Mild to moderate right hip osteoarthritis. Total left hip arthroplasty is unchanged. Incompletely evaluated combined anterior and posterior instrumented spinal fusion. No soft tissue abnormalities. IMPRESSION: Unchanged mild to moderate right hip osteoarthritis. Electronically signed by: Pedro Barkley MD Lester Cordoba MD IMG XR PROCEDURES Final Res ult * BONE MINERAL DENSITY (03/20/2016) Anatomical Region Laterality Modality Radiographic Pinky ging Narrative 03/20/2016 Ordered by an unspecified provider. Historical Provider IMG DXA PROCEDURES Final Result from Last 3 Months or Most Recently Relevant to Health Maintenance Insurance MEDICARE SOLUTIONS [facility] MEDICARE Address: [facility] [address] [place] [address] MEDICARE SOLUTIONS [facility] MEDICARE Address: [address] [address] [place] [address] MEDICARE SOLUTIONS Advance Directives For more information, please contact: [phone] * Full Code (Latest Code Status on File) Date Activated Date Inactivated Comments 01/22/2023 6:35 PM 01/23/2023 3:28 PM Care Teams Foil Spooler Relationship Specialty Start Date End Date Mohan Walters DO PCP - General Family Medicine 06/19/19
--- OUTSIDE RECORDS SUMMARY | 2025-01-20 11:02 | XMS_ITS | Referral Summary ---
Author Organization [facility] Address [address] [place] [address] Care Team Providers Care Rubber Tile Floor Layer Name Role Phone Mohan Walters DO Primary Care Provide r Encounters Date Type Department Care Team Description 12/24/2024 Orders Only [facility] Met[facility] Lip[facility] [address]th [place] [address] [place] [id number] Rimma Root RMA Hypothyroidism, unspecified type (Primary Dx); Hypoparathyroidism, unspecified hypoparathyroidism type (HCC); Postsurgical hypoparathyroidism (HCC); Postoperative hypothyroidism; Vitamin D deficiency 12/03/2024 6:24 PM INDUSTRIAL HEALTH AND SAFETY PROFESSOR - 12/03/2024 11:59 PM INDUSTRIAL HEALTH AND SAFETY PROFESSOR Hospital Encounter [facility] [address] [place] [address] Discharge Disposition: Discharge to home or self care 12/03/2024 Orders Only [facility] [address] [place] [address] Lester Cordoba MD Right hip pain 11/24/2024 Orders Only [facility] [address] [place] [address] Lester Cordoba MD Right hip pain (Primary Dx) 11/24/2024 Orders Only [facility] [address] [place] [address] Lester Cordoba MD 11/17/2024 Orders Only [facility] [address] 1st [address] [place] [address] Lester Cordoba MD 11/14/2024 12:15 PM INDUSTRIAL HEALTH AND SAFETY PROFESSOR - 11/14/2024 11:59 PM INDUSTRIAL HEALTH AND SAFETY PROFESSOR Hospital Encounter [facility] [address] [place] [id number] Right hip pain; Right thigh pain; Right groin pain Discharge Disposition: Discharge to home or self care 11/14/2024 12:00 PM INDUSTRIAL HEALTH AND SAFETY PROFESSOR Office Visit [facility] [address] [place] [address] Lester Cordoba MD Right hip pain (Primary Dx); Right thigh pain; Right groin pain 10/20/2024 Telephone [facility] [address] [place] [address] [place] [address] Rimma Root RMA from Last 3 Months Allergies Active Allergy Reactions Criticality Noted Date [...] (10/27/2022): Added automatically from request for surgery [id number] Neuropathic pain 08/29/2021 Assessment & Plan (08/29/2021 [...] hyperlipidemia) Assessment & Plan (11/28/2023 4:52 PM INDUSTRIAL HEALTH AND SAFETY PROFESSOR): 68 y.o. female with hypothyroidism due to [...] hyperlipidemia) Assessment & Plan (09/30/2020 2:36 PM INDUSTRIAL HEALTH AND SAFETY PROFESSOR): Check TFT's Adjust dose of levothyroxine as [...] mg/dl) Assessment & Plan (09/30/2020 2:36 PM INDUSTRIAL HEALTH AND SAFETY PROFESSOR): Check serum Ca , PTH, 25 oh [...] 01/04/2018 Assessment & Plan (11/28/2023 4:53 PM INDUSTRIAL HEALTH AND SAFETY PROFESSOR): 68 y.o. 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 Immunizations Immunization Administration Dates Next Due Hep B, Adolescent or Pediatric 08/29/1999,1998 Hep B, Unspecified 08/29/1999,07/05/1999 Influenza, Quadrivalent, Spl it, Preservative Free, Intramuscular 08/04/2020 Influenza, Trivalent, High D ose, Split, Preservative Free, Intramuscular 08/27/2024 Influenza, Unspecified 08/30/2023,08/26/2022, Tdap 03/15/2021 ZOSTER Recombinant 11/04/2023,09/02/2023 Social History Tobacco Use Types Packs/Day Years [...] on file Legal Sex Female 8:50 PM INDUSTRIAL HEALTH AND SAFETY PROFESSOR Gender Identity Not on file Sexual Orientation Not on file Last Filed Vital Signs Vital Sign Reading Time Taken Comments Blood Pressure 129/79 07/31/2024 4:16 PM CDT Pulse 65 07/31/2024 4:16 PM CDT Temperature 36.9 C (98.5 F) 07/31/2024 4:16 PM CDT Respiratory Rate 18 07/31/2024 4:16 PM CDT Oxygen Saturation 97% 07/31/2024 4:16 PM CDT Inhaled Oxygen Concentration - - Weight 95.3 kg (210 lb) 11/14/2024 12:10 PM INDUSTRIAL HEALTH AND SAFETY PROFESSOR Height 160 cm (5' 3 ) 11/14/2024 12:10 PM INDUSTRIAL HEALTH AND SAFETY PROFESSOR Body Mass Index 37.2 11/14/2024 12:10 PM INDUSTRIAL HEALTH AND SAFETY PROFESSOR Plan of Treatment Not on file Goals Goal Patient Goal Type Associated Problems Recent Progress Patient-Stated? Author CCM Chronic Pain Care Plan Chronic Care Management No Danita Perla RN Note: Problem: Chronic Pain Goals: 1. Minimize further functional decline 2. Maximize quality of life 3. Control pain Strategies: - Activity/exercise program recommendation - Conservative stepwise pain medicine strategy with multi-disciplinary approach - Recommend healthy lifestyle strategies and compensatory methods as needed Reduce the likelihood of falling Lifestyle No Danita Perla RN Note: Below are four things you [...] on stairs Contact your local community or senior center for information on exercise, fall prevention programs, or options for improving home safety. Medical Devices Implanted Type Area Medical Scientific Officer Device Identifier Shelf Expiration Date Model / Serial / Lot Cage Spine Lumbar [employer] G7 40mm 2 Mobility Hip D Liner Acetabular Cocr [id number] - [id number] Implanted:Qty: 1 on 01/22/2023 by Arnold Rizo MD at [facility] [employer] [id number] 10/23/2032 [id number] / / [id number] [employer] Trilogy 6.5mm 30mm Self Tap Acetabular Cortical Screw Bone [id number] - [id number] Implanted:Qty: 1 on 01/22/2023 by Arnold Rizo MD at [facility] [employer] [id number] 11/28/2032 [id number] / / [id number] [employer] G7 50mm Multihole Hip D Hemisphere Offset Shell Acetabular [id number] - [id number] Implanted:Qty: 1 on 01/22/2023 by Arnold Rizo MD at [facility] [employer] [id number] 09/20/2032 [id number] / / [id number] [employer] Trilogy 6.5mm 25mm Self Tap Screw Bone [id number] - [id number] Implanted:Qty: 1 on 01/22/2023 by Arnold Rizo MD at [facility] [employer] [id number] 09/06/2032 [id number] / / [id number] [employer] 40mm 28mm Lumen Hip D Liner Acetabular Longevity Sterile Latex [id number] - [id number] Implanted:Qty: 1 on 01/22/2023 by Arnold Rizo MD at [facility] [employer] [id number] 10/11/2027 [id number] / / [id number] [facility] Articul/[place] 28mm Cementless Hip +5mm 11/08 [employer] Femoral Latex Free [id number] - [id number] Implanted:Qty: 1 on 01/22/2023 by Arnold Rizo MD at [facility] [id number] 09/25/2027 [id number] / / [id number] [facility] Actis Collared Hip 11/08 4 Standard Offset Stem Femoral [id number] - [id number] Implanted:Qty: 1 on 01/22/2023 by Arnold Rizo MD at [facility] [id number] 06/25/2032 [id number] / / [id number] Procedures Procedure Name Priority Date/Time Associated Diagnosis Comments CALCIUM, IONIZED Routine 12/26/2024 9:11 AM INDUSTRIAL HEALTH AND SAFETY PROFESSOR Hypothyroidism, unspecified type Hypoparathyroidism, unspecified hypoparathyroidism type (HCC) Postsurgical hypoparathyroidism (HCC) Postoperative hypothyroidism Vitamin D deficiency PTH Routine 12/26/2024 9:11 AM INDUSTRIAL HEALTH AND SAFETY PROFESSOR Hypothyroidism, unspecified type Hypoparathyroidism, unspecified hypoparathyroidism type (HCC) Postsurgical hypoparathyroidism (HCC) Postoperative hypothyroidism Vitamin D deficiency T4, FREE Routine 12/26/2024 9:11 AM INDUSTRIAL HEALTH AND SAFETY PROFESSOR Hypothyroidism, unspecified type Hypoparathyroidism, unspecified hypoparathyroidism type (HCC) Postsurgical hypoparathyroidism (HCC) Postoperative hypothyroidism Vitamin D deficiency T3, FREE Routine 12/26/2024 9:11 AM INDUSTRIAL HEALTH AND SAFETY PROFESSOR Hypothyroidism, unspecified type Hypoparathyroidism, unspecified hypoparathyroidism type (HCC) Postsurgical hypoparathyroidism (HCC) Postoperative hypothyroidism Vitamin D deficiency TSH Routine 12/26/2024 9:11 AM INDUSTRIAL HEALTH AND SAFETY PROFESSOR Hypothyroidism, unspecified type Hypoparathyroidism, unspecified hypoparathyroidism type (HCC) Postsurgical hypoparathyroidism (HCC) Postoperative hypothyroidism Vitamin D deficiency RENAL FUNCTION PANEL Routine 12/26/2024 9:10 AM INDUSTRIAL HEALTH AND SAFETY PROFESSOR Hypothyroidism, unspecified type Hypoparathyroidism, unspecified hypoparathyroidism type (HCC) Postsurgical hypoparathyroidism (HCC) Postoperative hypothyroidism Vitamin D deficiency MSK MR OUTSIDE REFERENCE Routine 12/03/2024 6:24 PM INDUSTRIAL HEALTH AND SAFETY PROFESSOR MRI HIP RIGHT WO CONTRAST Schedule Routine, Read Routine (OP Routine) 12/03/2024 3:47 PM INDUSTRIAL HEALTH AND SAFETY PROFESSOR Right hip pain XR PELVIS 1 OR 2 VIEWS Schedule Routine, Read Routine (OP Routine) 11/14/2024 12:22 PM INDUSTRIAL HEALTH AND SAFETY PROFESSOR Right hip pain Right thigh pain Right groin pain BONE MINERAL DENSITY 03/20/2016 from Last 3 Months or Most Recently Relevant to Health Maintenance Results * Calcium, ionized (12/26/2024 9:11 AM INDUSTRIAL HEALTH AND SAFETY PROFESSOR) Calcium, Ionized, Serum 4.7 4.5 - 5.6 mg/dL [facility] - 01 Blood 12/26/2024 9:11 AM INDUSTRIAL HEALTH AND SAFETY PROFESSOR 12/26/2024 Narrative [facility] - 12/29/2024 3:07 PM INDUSTRIAL HEALTH AND SAFETY PROFESSOR Performed at: [address] [id number] Lead Radiation Therapist: Braulio Hopkins PhD, Phone: [phone] us Perry Breaux MD PhD LAB BLOOD ORDERABLES Fin al Result [facility] - 01 * T3, free (12/26/2024 9:11 AM INDUSTRIAL HEALTH AND SAFETY PROFESSOR) Triiodothyronin e,Free,Serum 2.0 2.0 - 4.4 pg/mL [facility] - 01 Blood 12/26/2024 9:11 AM INDUSTRIAL HEALTH AND SAFETY PROFESSOR 12/26/2024 Narrative [facility] - 12/27/2024 7:09 AM INDUSTRIAL HEALTH AND SAFETY PROFESSOR Performed at: [address] [place] [id number] Lead Radiation Therapist: Braulio Hopkins PhD, Phone: [phone] Perry Breaux MD PhD LAB BLOOD ORDERABLES Fin al Result Performing Organization Address City/[facility]/ZIP Co de Phone Number [facility] - * TSH (12/26/2024 9:11 AM INDUSTRIAL HEALTH AND SAFETY PROFESSOR) TSH 3.240 0.450 - 4.500 uIU/mL [facility] - 01 Blood 12/26/2024 9:11 AM INDUSTRIAL HEALTH AND SAFETY PROFESSOR 12/26/2024 Narrative [facility] - 12/27/2024 7:09 AM INDUSTRIAL HEALTH AND SAFETY PROFESSOR Performed at: [address] [place] [id number] Lead Radiation Therapist: Braulio Hopkins PhD, Phone: [phone] Perry Breaux MD PhD LAB BLOOD ORDERABLES Fin al Result Performing Organization Address [facility] Co de Phone Number [facility] - * T4, free (12/26/2024 9:11 AM INDUSTRIAL HEALTH AND SAFETY PROFESSOR) T4,Free(Direct) 1.47 0.82 - 1.77 ng/dL [facility] - 01 Blood 12/26/2024 9:11 AM INDUSTRIAL HEALTH AND SAFETY PROFESSOR 12/26/2024 Narrative [facility] - 12/27/2024 7:09 AM INDUSTRIAL HEALTH AND SAFETY PROFESSOR Performed at: [address] [place] [id number] Lead Radiation Therapist: Braulio Hopkins PhD, Phone: [phone] us Perry Breaux MD PhD LAB BLOOD ORDERABLES Fin al Result Performing Organization Address City/[facility]/ZIP Co de Phone Number [facility] - * (ABNORMAL) PTH (12/26/2024 9:11 AM INDUSTRIAL HEALTH AND SAFETY PROFESSOR) Pathologist [facility] PTH Intact 5(L) 15 - 65 pg/mL [facility] - 01 Blood 12/26/2024 9:11 AM INDUSTRIAL HEALTH AND SAFETY PROFESSOR 12/26/2024 Narrative [facility] - 12/28/2024 3:07 PM INDUSTRIAL HEALTH AND SAFETY PROFESSOR Performed at: [address] [place] [id number] Lead Radiation Therapist: Braulio Hopkins PhD, Phone: [phone] Perry Breaux MD PhD LAB BLOOD ORDERABLES Fin al Result Performing Organization Address City/[facility] Co de Phone Number [facility] - 01 * Renal function panel (12/26/2024 9:10 AM INDUSTRIAL HEALTH AND SAFETY PROFESSOR) Pathologist [facility] Glucose 83 70 [...] [facility] - 01 Blood 12/26/2024 9:10 AM INDUSTRIAL HEALTH AND SAFETY PROFESSOR 12/26/2024 Narrative [facility] - 12/27/2024 7:09 AM INDUSTRIAL HEALTH AND SAFETY PROFESSOR Performed at: [address] [place] [address] [id number] Lead Radiation Therapist: Braulio Hopkins PhD, Phone: [phone] Perry Breaux MD PhD LAB BLOOD ORDERABLES Fin al Result Performing Organization Address [facility]/ZIP Co de Phone Number [facility] - 01 * MSK MR Outside Reference (12/03/2024 6:24 PM INDUSTRIAL HEALTH AND SAFETY PROFESSOR) Impressions [facility] - 12/03/2024 6:24 PM INDUSTRIAL HEALTH AND SAFETY PROFESSOR These images are for Reference purposes only and have not been reviewed by [facility]. There will be no report generated by a [facility] Radiologist. Narrative [facility] - 12/03/2024 6:24 PM INDUSTRIAL HEALTH AND SAFETY PROFESSOR EXAMINATION: Images For Reference Purposes Only Lester Cordoba MD IMG MRI PROCEDURES Final Re sult Performing Organization Address [facility] Co de Phone Number [email or web address] * MRI Hip Right WO Contrast (12/03/2024 3:47 PM INDUSTRIAL HEALTH AND SAFETY PROFESSOR) Anatomical Region Laterality Modality Lower Extremities Right Magnetic Reson ance Lester Cordoba MD IMG MRI PROCEDURES Final Re sult * XR Pelvis 1 or 2 Views (11/14/2024 12:22 PM INDUSTRIAL HEALTH AND SAFETY PROFESSOR) Anatomical Region Laterality Modality Body, Pelvis N/A Computed Radiogr aphy 11/14/2024 12:3 3 PM INDUSTRIAL HEALTH AND SAFETY PROFESSOR Impressions 11/14/2024 12:33 PM INDUSTRIAL HEALTH AND SAFETY PROFESSOR Unchanged mild to moderate right hip osteoarthritis. Electronically signed by: Pedro Barkley MD Narrative 11/14/2024 12:33 PM INDUSTRIAL HEALTH AND SAFETY PROFESSOR EXAMINATION: XR PELVIS 1 OR 2 VIEWS [...] Narrative 03/20/2016 Ordered by an unspecified provider. us Historical Provider IMG DXA PROCEDURES Final Result from Last 3 Months or Most Recently Relevant to Health Maintenance Insurance MEDICARE SOLUTIONS MEDICARE SOLUTIONS MEDICARE SOLUTIONS Advance Directives For more information, please contact: [phone] * Full Code (Latest Code Status on File) Date Activated Date Inactivated Comments 01/22/2023 6:35 PM 01/23/2023 3:28 PM Care Teams Rubber Tile Floor Layer Relationship Specialty Start Date End Date Mohan Walters DO PCP - General Family Medicine 06/19/19
--- OUTSIDE RECORDS SUMMARY | 2025-01-20 11:02 | XMS_ITS | Clinical Summary ---
Author Organization [facility] Address [address] [place] [address] Care Team Providers Care Commissary Superintendent Name Role Phone Romeo Aaron Mariam LATHAM Primary Care Provider + Valdo García MD Unavailable [phone] Allergies Active Allergy Reactions Criticality Noted Date Comments Carbamazepine Syncope 08/30/2021 Dander Other (see comment) 07/20/2020 Allergy to dogs, cats, dust, mold, pollen Erythromycin Other (see comment) Low 03/14/2014 Erythromycin Base Rash Low 06/17/2024 Levofloxacin Hives Medium Methocarbamol Rash Low 08/09/2020 Penicillins Hives,Rash High 03/14/2014 Sulfa Antibiotics Fatigue,Other (see comment) Low 03/14/2014 Reaction: Other Topiramate Other (see comment) Low 08/28/2023 The patient states Topamax caused SE of depression/worsening of mood Medications Calcium Carbonate (CALCIUM 600 OR)Indications:2 at lunch time and 1 at night Take 3.5 tablets by mouth nightly. Indications: 2 at lunch time and 1 at night 3 Active Cholecalciferol (VITAMIN D-3) 5000 units Tab Take 1 tablet (5,000 Units total) by mouth daily. 30 tablet 9 Active calcitriol 0.25 MCG capsuleIndicatio ns:Iatrogenic hypocalcemia Take 1 capsule (0.25 mcg total) by mouth daily. 90 capsule 1 1 Active vitamin B-12 (CYANOCOBALAMIN) 1000 mcg tablet Acti ve ferrous sulfate EC 325 (65 Fe) MG tablet Take 1 tablet by mouth daily. Active vitamin C (ASCORBIC ACID) 250 MG tablet Take 2 tablets (500 mg total) by mouth daily. Active pregabalin (LYRICA) 200 MG capsule Take 1 capsule (200 mg total) by mouth 3 (three) times daily. QHS Active DRYSOL 20 % external solutionIndicati ons:Hyperhidrosi s APPLY SOLUTION TOPICALLY AT BEDTIME 60 mL 4 Active DULoxetine (CYMBALTA) 60 MG capsuleIndicatio ns:Generalized anxiety disorder Take 2 capsules (120 mg total) by mouth daily. 180 capsule 1 4 Active glycopyrrolate (ROBINUL) 1 MG tablet Take 2 tablets (2 mg total) by mouth 2 (two) times daily. 4 Active amitriptyline (ELAVIL) 10 MG tablet Take 1 tablet (10 mg total) by mouth nightly. 4 Active levothyroxine (SYNTHROID) 137 MCG tablet Take 1 tablet (137 mcg total) by mouth daily. Active predniSONE (DELTASONE) 20 MG tabletIndication s:Chronic bilateral low back pain without sciatica Take 3 tablets for three days, then take 2 tablets for three days, then take 1 tablet for three days 18 tablet 4 Active Additional Information Patient not taking.Reported on 12/29/2024 naproxen (NAPROSYN) 500 MG tabletIndication s:Chronic bilateral low back pain without sciatica Take 1 tablet (500 mg total) by mouth 2 (two) times daily with meals. 60 tablet 4 Active montelukast (SINGULAIR) 10 MG tabletIndication s:Allergies Take 1 tablet (10 mg total) by mouth nightly at bedtime. at bedtime 90 tablet 2 4 Active Additional Information Patient not taking.Reported on 12/29/2024 ALPRAZolam (XANAX) 1 MG tabletIndication s:Generalized anxiety disorder TAKE 1/2 TO 1 (ONE-HALF TO ONE) TABLET BY MOUTH TWICE DAILY NEEDED FOR ANXIETY 60 tablet 5 Active famotidine (PEPCID) 20 MG tablet Take 1 tablet (20 mg total) by mouth 2 (two) times daily. Active loratadine (CLARITIN) 10 MG tablet Take 1 tablet (10 mg total) by mouth daily. Active oxyCODONE-acetam inophen (PERCOCET) 5-325 MG tablet Take 1 tablet by mouth every 4 (four) hours as needed for Pain. Active Active Problems Problem Noted Date Diagnosed Date Burning sensation of foot 12/16/2020 Pseudoarthrosis of lumbar spine 12/16/2020 S/P lumbar laminectomy 07/28/2020 Spinal stenosis of lumbar re gion with neurogenic claudication 07/28/2020 S/P lumbar fusion 07/28/2020 Degenerative disc disease, lumbar 07/28/2020 Foraminal stenosis of lumbar region 07/28/2020 Lumbar spine instability 07/28/2020 Spinal instabilities of lumbar region 05/06/2020 Elevated blood-pressure read ing without diagnosis of hypertension 06/16/2019 Cervical radiculopathy 05/18/2019 Generalized anxiety disorder 05/18/2019 Lumbar radiculopathy 05/18/2019 Numbness around mouth 05/18/2019 Anxiety 05/15/2019 Iatrogenic hypocalcemia 02/14/2019 Idiopathic hypoparathyroidism ([facility]) 02/14/2019 Postoperative hypothyroidism 02/14/2019 Overview (03/15/2021): Last Assessment & Plan: Check TFT's Adjust dose of levothyroxine , if indicated Send rx Last Assessment & Plan: Check TFT's Adjust dose of levothyroxine as indicated Postsurgical hypoparathyroidism ([facility] ) 02/14/2019 Overview (03/15/2021): Last Assessment & Plan: Risk of hypercalciuria discussed Check 24 h urine calcium Check BMP Ca 500 mg tid, Rocaltrol 0.25 mcg daily Last Assessment & Plan: Check serum Ca , PTH, 25 oh vit D , urine calcium Continue Ca, Rocaltrol Resolved Problems Problem Noted Date Diagnosed Date Resolved Date Preoperative clearance 07/13/202008/06 Encounters Date Type Department Care Team Description 01/06/2025 Telephone [facility] Medical [facility] Orthopedic & Sports Medicine - [place] [address] [place] [address] [place], [place] [id number] Zachery Peguero MD Schedule Surgery 01/02/2025 Scan HEALTH INFO SRVCS Scanned, Doc Med Group 12/30/2024 Telephone [facility] Internal [address] [address] [place] [phone] Aaron Engle, DO Information 12/29/2024 7:40 AM NEWSPAPER MANAGING EDITOR Office Visit [facility] Orthopedic & Sports Medicine [facility] [address] [place] [address] Zachery Peguero MD New Patient (Right hip) 12/29/2024 Travel 12/18/2024 Orders Only [facility] Orthopedic & Sports [facility] [address] [place] [address] Zachery Peguero MD 12/10/2024 Telephone [facility] Internal [address] [place] [phone] Aaron Engle P, DO Results 12/03/2024 MyChart Message Enc [facility] Internal [address] [place] [address] Aaron Engle, DO MRI 12/03/2024 Telephone [facility] Internal [address] [place] [phone] Aaron Engle, DO Results 11/25/2024 Scan MG HEALTH INFO SRVCS Scanned, Doc Med Group MRI (SCAN) 11/24/2024 Telephone [facility] Internal [facility] [address] [place] [address] Aaron Engle P, DO Medication Request 11/14/2024 Telephone [facility] Internal [facility] [address] [place] [phone] Aaron Engle P, DO Refill Request 11/13/2024 Scan MG HEALTH INFO SRVCS Scanned, Doc Med Group 11/11/[address] [address] Aaron Engle, DO Advice 11/07/2024 Scan MG HEALTH INFO SRVCS Scanned, Doc Med Group Sleep Study (SCAN) 11/03/[address] [address] Aaron Engle P, DO Advice 10/30/2024 Scan MG HEALTH INFO SRVCS Scanned, Doc Med [facility] Procedure (SCAN) 10/29/2024 MyChart Message Enc [address] [address] [place], [facility] Provider lab results 10/28/2024 7:20 AM NEWSPAPER MANAGING EDITOR Laboratory Only [address] [address] Aaron Engle, DO 10/28/2024 Travel 10/27/2024 Scan HEALTH INFO SRVCS Scanned, Doc Med Group Procedure (SCAN); Pathology (SCAN) 10/20/[address] [address] Aaron Engle, DO Referral from Last 3 Months Immunizations Name Administration Dates Next Due Fluzone 6 Months+ Quad (0.5 mL Prefilled Syringe) 08/04/2020 Fluzone High Dose (IIV, trivalent, 0.5mL) 2023 Fluzone High Dose - >Age 65 (Prefilled Syringe) 08/30/2023 Hepatitis B 08/29/1999,07/05/1999 Influenza Adult (Generic) 08/30/2023,08/26/2022 MODERNA COVID-19 (OVERSIZE LOAD PILOT ESCORT DEIDRE DAVIN), MRNA, LNP-S, PF, 50 MCG/ 0.25 ML DOSE 04/09/2022 PFIZER COVID-19 (ORIGINAL FO RMULATION, PURPLE CAP) mRNA, LNP-S, PF, 30 MCG/0.3 ML DOSE 10/15/2021,02/08/2021,01/16/2021 PFIZER COVID-19 BIVALENT (12 +) mRNA, LNP-S, PF, 30 MCG/0.3 ML DOSE 10/03/2022 Pneumococcal (Prevnar 20) 08/26/2022 Shingrix 11/04/2023,09/02/2023 Tdap (Boostrix) 03/15/2021 Family History Medical History Relation Comments CHF Father Heart Disease Father Cancer Maternal Grandmother Stomach Arthritis Mother Depression Mother Relation Status Comments Daughter Alive Father [facility]Age 70s) [facility] Maternal Grandmother Mother (Age 70s) of [place], may have had cancer Son Alive Social History Tobacco Use Types Packs/Day Years Used Date Smoking Tobacco: Never Passive Smoke Exposure: Never Smokeless Tobacco: Never Tobacco Cessation:Counseling Given: No Comments:Not smoker Alcohol Use Standard Drinks/Week Comments Yes 0 (1 standard drink = 0.6 oz pure alcohol) occasional, less than 1 drink a month PHQ-2 Answer Date Recorded Patient Health Questionnaire-2 Score 0 12/29/2024 Education Answer Date Recorded What is the highest level of school you have completed or the highest degree you have received? 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 Not on file Not on file Not on jacklyn e Last Filed Vital Signs Vital Sign Reading Time Taken Comments Blood Pressure 128/80 12/29/2024 7:47 AM NEWSPAPER MANAGING EDITOR Pulse 90 12/29/2024 7:47 AM NEWSPAPER MANAGING EDITOR Temperature 37.3 C (99.1 F) 12/29/2024 7:47 AM NEWSPAPER MANAGING EDITOR Respiratory Rate 16 08/27/2024 2:19 PM CDT Oxygen Saturation 96% 12/29/2024 7:47 AM NEWSPAPER MANAGING EDITOR Inhaled Oxygen Concentration - - Weight 100.5 kg (221 lb 9.6 oz) 12/29/2024 7:47 AM NEWSPAPER MANAGING EDITOR Height 160 cm (5' 3 ) 12/29/2024 7:47 AM NEWSPAPER MANAGING EDITOR Body Mass Index 39.25 12/29/2024 7:47 AM NEWSPAPER MANAGING EDITOR Plan of Treatment Upcoming Encounters Date Type Department Care Team (Late st Contact Info) Description 01/22/2025 11:40 AM NEWSPAPER MANAGING EDITOR Office Visit [facility] Medical Group Family & Internal Medicine [place] [address] [place] [address] Aaron Engle, [address] [place] [address] Health Maintenance Due Date Last Done Comments Annual Medicare Wellness Visit 2022 Mammogram Screening 06/09/2025 06/09/2024, 05/01/2023, 05/02/2022, Additional history exists COVID-19 Vaccine ( season) 2025 09/30/2023, 10/03/2022, 04/09/2022, Additional history exists Postponed from 07/27/2024 (Going to Outside Clinic) Colorectal Cancer Screening FIT-DNA (3 Years) 10/08/2027 10/08/2024, 10/08/2024, 04/05/2021 Dexa Scan (General) 09/15/2029 09/15/2024, DTaP, Tdap and Td Vaccines (2 - Td or Tdap) 03/15/2031 03/15/2021 RSV Immunization or 60+ Years (1 - 1-dose 75+ series) 2032 Pneumococcal Vaccine: 65+ Years Completed 08/26/2022 Hepatitis C Completed 04/02/2023 Zoster Vaccines Completed 11/04/2023, 09/02/2023 Influenza Adult Completed 08/27/2024, 03/2023, 08/30/2023, Additional history exists PHQ-2 (Physician [place]) Completed 12/29/2024 Meningococcal B Vaccine Aged Out No l onger eligible based on patient's age to complete this topic Meningococcal Vaccine Aged Out No cynthia liana eligible based on patient's age to complete this topic RSV Immunizations Under 20 Months Aged Out No longer eligible based on patient's age to complete this topic Medical Devices Implanted Type Area Diagnostic Radiologist Device Identifier Shelf Expiration Date Model / Serial / Lot Graft Infuse Bone Large Ii - [id number] Implanted:Qty: 1 on 07/28/2020 by Syed Posey MD at [facility] N/A: Spine Lumbar [employer] 06/26/2021 [id number] / / [id number] Description:1130-RECONSTITUT ED PER MOLD TECHNICIAN'S INSTRUCTIONS- 8.4ML OF STERILE WATER ADDED TO BONE MORPHOGENIC PROTEIN(BMP) AND THEN DRAWN FROM VIAL PER BY Farzad MEDINA-NEWSPAPER MANAGING EDITOR AND PLACED ON STERILE FIELD. KK-NEWSPAPER MANAGING EDITOR THEN PLACED RECONSTITUTED BMP LIQUID OVER SPONGE AT 1135 L2, L3, L4 Sub Bonegrt Ms Grft Mtrx Block; Void Jacklyn 20ml - [id number] Implanted:Qty: 1 on 07/28/2020 by Syed Posey MD at [facility] N/A: Spine Lumbar [employer] 10/25/2022 [id number] / / [id number] Description:L2, L3, L4 Synthes Matrix 6 X 50mm Pedicle Screw Implanted:Qty: 1 on 07/28/2020 by Syed Posey MD at [facility] N/A: Spine Lumbar SYNTHES [id number] / / Synthes Matrix 6.5 X 45mm Pedicle Screw Implanted:Qty: 2 on 07/28/2020 by Syed Posey MD at [facility] N/A: Spine Lumbar SYNTHES [id number] / / Synthes Matrix 5 X 45mm Pedicle Screw Implanted:Qty: 2 on 07/28/2020 by Syed Posey MD at [facility] N/A: Spine Lumbar [id number] / / Synthes Matrix Sekou Implanted:Qty: 2 on 07/28/2020 by Syed Posey MD at [facility] N/A: Spine Lumbar SYNTHES [id number] / / Synthes Matrix Locking Screw Implanted:Qty: 8 on 07/28/2020 by Syed Posey MD at [facility] N/A: Spine Lumbar [id number] / / Synthes Matrix Transverse Connector Implanted:Qty: 1 on 07/28/2020 by Syed Posey MD at [facility] N/A: Spine Lumbar [id number] / / Procedures Procedure Name Priority Date/Time Associated Diagnosis Comments OXR PELVIS 1 OR 2 VIEWS Routine 12/29/2024 7:20 AM NEWSPAPER MANAGING EDITOR Pain of right hip MRI GENERIC 11/25/2024 MRI GENERIC 11/25/2024 SLEEP STUDY GENERIC (SCAN ORDER) 11/07/2024 PROCEDURE GENERIC (SCAN ORDER) 10/30/2024 COLLECTION VENOUS BLOOD VENIPUNCTURE Routine 10/28/2024 7:26 AM NEWSPAPER MANAGING EDITOR Hyperlipidemia, unspecified hyperlipidemia type LIPID PANEL Routine 10/28/2024 7:26 AM NEWSPAPER MANAGING EDITOR Hyperlipidemia, unspecified hyperlipidemia type PATHOLOGY GENERIC (SCAN ORDER) 10/27/2024 PROCEDURE GENERIC (SCAN ORDER) 10/27/2024 COLOGUARD (EXACT SCIENCE) Routine 10/08/2024 12:01 AM NEWSPAPER MANAGING EDITOR Screening for malignant neoplasm of colon BONE DENSITY GENERIC (SCAN ORDER) 09/15/2024 MG DIAG W IZABELLA BILAT DIGI Routine 06/09/2024 2:36 PM CDT Inconclusive mammogram HEPATITIS C ANTIBODY Routine 04/02/2023 1:57 PM CDT Postoperative hypothyroidism Need for hepatitis C screening test Screening for lipid disorders Annual physical exam from Last 3 Months or Most Recently Relevant to Health Maintenance Results * OXR PELVIS 1 OR 2 VIEWS (12/29/2024 7:20 AM NEWSPAPER MANAGING EDITOR) Anatomical Region Laterality Modality Radiographic Pinky ging Narrative 12/29/2024 8:49 AM NEWSPAPER MANAGING EDITOR PROCEDURE: OXR PELVIS 1 OR 2 VIEWS VIEWS: 2 DATE: 12/29/24 CLINICAL INDICATION: FINDINGS: Degenerative changes of the right hip. Some of the bony detail is obscured by the overlying soft tissue. Left total hip arthroplasty in place. Instrumentation of the lumbar spine is partially visualized. No apparent fractures. IMPRESSION: Degenerative changes of the right hip. Zachery Peguero MD GENERAL IMAGING Final Result * MRI GENERIC (11/25/2024) Only the most recent of2 resultswithin the time period is included. Anatomical Region Laterality Modality Other 11/25/2024 [facility] Group Scanned SCANNING Final Resu lt * SLEEP STUDY GENERIC (SCAN ORDER) (11/07/2024) 11/07/2024 Result [facility] Scanned SCANNING Final Resu lt * PROCEDURE GENERIC (SCAN ORDER) (10/30/2024) 10/30/2024 Result [facility] Group Scanned SCANNING Final Resu lt * (ABNORMAL) LIPID PANEL (10/28/2024 7:26 AM NEWSPAPER MANAGING EDITOR) CHOLESTEROL 222(H) <200 MG/DL 10/28/2024 4:38 PM NEWSPAPER MANAGING EDITOR [facility] TRIGLYCERIDES 61 <150 MG/DL 10/28/2024 4:38 PM NEWSPAPER MANAGING EDITOR [facility] HDL 65 >40 MG/DL 10/28/2024 4:38 PM NEWSPAPER MANAGING EDITOR [facility] LDL-C 145(H) <100 MG/DL 10/28/2024 4:38 PM NEWSPAPER MANAGING EDITOR [facility] VLDL CALCULATION 12 5 - 28 MG/DL 10/28/2024 4:38 PM [facility] CHOL/HDL RATIO 3.4 0.0 - 4.0 10/28/2024 4:38 PM NEWSPAPER MANAGING EDITOR [facility] LDL/HDL 2.2(H) 0.41 - 2.13 10/28/2024 4:38 PM NEWSPAPER MANAGING EDITOR [facility] DI[facility] NON HDL CHOLESTEROL 157(H) <140 MG/DL 10/28/2024 4:38 PM NEWSPAPER MANAGING EDITOR [facility] 10/28/2024 7:26 AM NEWSPAPER MANAGING EDITOR Aaron Engle DO LABORATORY Final Re sult [facility] [address] [facility] [place] [address], * PATHOLOGY GENERIC (SCAN ORDER) (10/27/2024) 10/27/2024 [facility] Scanned SCANNING Final Resu lt * PROCEDURE GENERIC (SCAN ORDER) (10/27/2024) 10/27/2024 us [facility] Scanned SCANNING Final Resu lt * COLOGUARD (EXACT SCIENCE) (10/08/2024 12:01 AM NEWSPAPER MANAGING EDITOR) COLOGUARD RESULT Negative Negative [employer] (CLIA #:[id number]) Comment: NEGATIVE TEST RESULT. A negative Cologuard result indicates a low likelihood that a colorectal cancer (CRC) or advanced adenoma (adenomatous polyps with more advanced pre-malignant features) is present. The chance that a person with a negative Cologuard test has a colorectal cancer is less than 1 in 1500 (negative predictive value >99.9%) or has an advanced adenoma is less than 5.3% (negative predictive value 94.7%). These data are based on a prospective cross-sectional study of 10,000 individuals at average risk for colorectal cancer who were screened with both Cologuard and colonoscopy. (Amita Eduardo al, N Engl J Med 2014;370(14):1235-4134) The normal value (reference range) for this assay is negative. COLOGUARD RE-SCREENING RECOMMENDATION: Periodic colorectal cancer screening is an important part of preventive healthcare for asymptomatic individuals at average risk for colorectal cancer. Following a negative Cologuard result, the [place] [employer] and U.S. Multi-Society Task Force screening guidelines recommend a Cologuard re-screening interval of 3 years. References: [place] [employer] Guideline for Colorectal Cancer Screening: https://www.cancer.org/cancer/qwcny-ruydet-xprwfi/yjppdafmu-rebrgnavt-kfhnuve/ac s-rec ommendations.html.; Wilfredo DK, Keisha CR, Bessie HensonK, Colorectal Cancer Screening: Recommendations for Physicians and Patients from the U.S. Multi-Society Task Force on Colorectal Cancer Screening , Am J Gastroenterology 2017; 112:5937-6253. TEST DESCRIPTION: Composite algorithmic analysis of stool DNA-biomarkers with hemoglobin immunoassay. Quantitative values of individual biomarkers are not reportable and are not associated with individual biomarker result reference ranges. Cologuard is intended for colorectal cancer screening of adults of either sex, 45 years or older, who are at average-risk for colorectal cancer (CRC). Cologuard has been approved for use by the U.S. FDA. The performance of Cologuard was established in a cross sectional study of average-risk adults aged 50-84. Cologuard performance in patients ages 45 to 49 years was estimated by sub-group analysis of near-age groups. Colonoscopies performed for a positive result may find as the most clinically significant lesion: colorectal cancer [4.0%], advanced adenoma (including sessile serrated polyps greater than or equal to 1cm diameter) [20%] or non- advanced adenoma [31%]; or no colorectal neoplasia [45%]. These estimates are derived from a prospective cross-sectional screening study of 10,000 individuals at average risk for colorectal cancer who were screened with both Cologuard and colonoscopy. (Amita Galaviz et al, N Engl J Med 2014;370(14):9650-3950.) Cologuard may produce a false negative or false positive result (no colorectal cancer or precancerous polyp present at colonoscopy follow up). A negative Cologuard test result does not guarantee the absence of CRC or advanced adenoma (pre-cancer). The current Cologuard screening interval is every 3 years. ([place] [employer] and U.S. Multi-Society Task Force). Cologuard performance data in a 10,000 patient pivotal study using colonoscopy as the reference method can be accessed at the following location: www.[employer].voxapp/results. Additional description of the Cologuard test process, warnings and precautions can be found at www.cologuard.com. STOOL STOOL SPECIMEN / Unknown 10/08/2024 12:01 AM NEWSPAPER MANAGING EDITOR 10/09/2024 12:17 PM NEWSPAPER MANAGING EDITOR Aaron Engle DO BODY FLUIDS AND STOOLS O RDERABLES Final Result [employer] [address] [place] [address], [place] [phone] [[employer] (CLIA #:[id number]) [address] [place] [address] * BONE DENSITY GENERIC (SCAN ORDER) (09/15/2024) Anatomical Region Laterality Modality Other 09/15/2024 [facility] Scanned SCANNING Final Resu lt * MG DIAG W IZABELLA BILAT DIGI (06/09/2024 2:36 PM CDT) Anatomical Region Laterality Modality Breast Bilateral Mammography 06/09/2024 3:02 PM CDT Impressions 06/09/2024 3:11 PM CDT =====IMPRESSION:===== Cystic fluid collection the right breast is now stable for more than 3 years and is therefore benign. No new findings in either breast to suggest malignancy Assessment: ACR BI-RADS 2 - BENIGN FINDING(S) Recommendation: 1:Routine Screening Bilateral COMMENTS: Patient encouraged to continue with annual screening mammography. Examination: Breast ultrasound Findings: See combined report above. Comments: Ordered By: AARON ENGLE Interpreted By: Arnold Webb MD, 06/09/2024 3:02 PM Narrative 06/09/2024 3:11 PM CDT Examination: Bilateral 3D diagnostic mammogram and right breast ultrasound. [id number] Reason For Exam: Follow-up exam for fluid collection the right breast. Contralateral annual screening. No prior breast procedures. No current complaints. No personal or family history of malignancy. Comparison: Prior mammograms and ultrasounds from 05/01/2023 05/02/2022 10/26/2021 04/26/2021 Technique: Bilateral 3D digital diagnostic mammography and right breast ultrasound was performed. This study was read with the assistance of a computer-aided detection system. Tissue density: There are scattered areas of fibroglandular density. Findings: Tiny benign calcifications again seen bilaterally. Benign right axillary lymph node. Overall parenchymal pattern unchanged from prior studies including area of fluid collection in the anterior depth medial left breast. No new focal asymmetry, dominant mass lesion, area of skin thickening, or cluster of suspicious for calcifications in either breast to suggest malignancy. Repeat ultrasound evaluation of the fluid collection is performed of the right breast. Again seen at 12:30 o'clock position 4 cm from the nipple is a well-demarcated nearly hypoechoic collection with a well-defined posterior wall. There is some posterior acoustic enhancement. No internal vascularity or solid components are noted. Maximal size is 16 mm on today's study. No significant interval change for 3 years Aaron Engle DO MAMMO Final Re sult * HEPATITIS C ANTIBODY (04/02/2023 1:57 PM CDT) HEPATITIS C AB NON-REACTI VE NON-REACT LÁZARO 04/03/2023 6:35 PM CDT [facility] Comment: ANTIBODIES TO HCV NOT DETECTED. DOES NOT EXCLUDE THE POSSIBILITY OF EXPOSURE TO HCV. 04/02/2023 1:57 PM CDT Aaron Engle DO LABORATORY Final Re sult [facility] [address] [place] [address], [phone] from Last 3 Months or Most Recently Relevant to Health Maintenance Insurance [facility] Advance Directives * Full Code (Latest Code Status on File) Date Activated Date Inactivated Comments 07/28/2020 4:21 PM 07/30/2020 5:32 PM Care Teams Commissary Superintendent Relationship Specialty Start Date End Date Aaron Engle DO [address] [place] [id number] PCP - General FAMILY PRACTICE 05/15/19 Valdo García MD [address] [facility] [address] [place] [phone] Consulting Physician CARDIOVASCULAR DISEASE 05/28/19
[2025-01-20 11:26] LABS: Basophils Absolute Auto 0.1 K/mm3 (0.0-0.1); Basophils Percent Auto 0.8 % (0.2-1.2); Eosinophils Absolute Auto 0.3 K/mm3 (0-0.3); Eosinophils Percent Auto 4.4 % (0-4.4); Hematocrit 42.8 % (37.0-47.0); Hemoglobin 13.5 g/dL (12.0-15.0); Immature Granulocyte Absolute 0.03 K/mm3 (0.00-0.031); Immature Granulocyte Percent A 0.4 % (0-0.5); Lymphocytes Absolute Auto 1.57 K/mm3 (0.9-3.2); Lymphocytes Percent Auto 20.9 % (18.3-44.2); Mean Corpuscular HGB Conc 31.5 g/dl (32-36); Mean Corpuscular Hemoglobin 27.7 pg (26-34); Mean Corpuscular Volume 87.9 fl (80-100); Mean Platelet Volume 10.2 fl (7.4-10.4); Monocytes Absolute Auto 0.6 K/mm3 (0.1-0.6); Monocytes Percent Auto 7.3 % (2.6-8.5); Neutrophils Percent Auto 66.2 % (45.5-73.1); Platelet Count Result 257 k/mm3 (150-375); Red Blood Count 4.87 M/mm3 (4.2-5.4); Red Cell Distribution Width 14.5 % (11.5-14.5); White Blood Count 7.5 K/mm3 (4.5-10.0)
[2025-01-20 11:36] LABS: Albumin Level 4.2 g/dL (3.5-5.1); Estimated Glomerular Filt Rate > 60; Glucose 92 mg/dL (65-110); Urine Cotinine NEGATIVE
[2025-01-20 12:45] LABS: MRSA (PCR) NOT DETECTED (NOT DETECTE)
[2025-01-20 13:08] LABS: Hemoglobin A1C 5.6 % (<5.7)
== END 2025-01-20 09:45 | disposition home or self-care (01) ==
LOC: ANHSURGERY 09:48
PROVIDERS: PCP Student in an Organized Health Care Education/Training Program; Visit Provider Orthopaedic Surgery
DX: Z01.818 Encounter for other preprocedural examination (principal); M16.11 Unilateral primary osteoarthritis, right hip; R94.31 Abnormal electrocardiogram [ECG] [EKG]
CPT/HCPCS: 80307; 82040; 82565; 82947; 83036; 85025; 86850; 86900; 86901; 87641; 93005

== ENCOUNTER 2025-01-22 13:19 | Outpatient (CLI) | payer MEDICARE, SELFPAY | END 2025-01-22 13:20 | disposition home or self-care (01) | PROVIDERS: PCP Student in an Organized Health Care Education/Training Program; Visit Provider Student in an Organized Health Care Education/Training Program | DX: I82.461 Acute embolism and thrombosis of right calf muscular vein (principal); I82.431 Acute embolism and thrombosis of right popliteal vein; I82.451 Acute embolism and thrombosis of right peroneal vein; I82.441 Acute embolism and thrombosis of right tibial vein; M79.89 Other specified soft tissue disorders | CPT/HCPCS: 93971 ==